=== PATIENT | female | born 1935 | race Caucasian/White ===

== ENCOUNTER 2016-08-14 18:46 | Inpatient (IN) | payer MEDICARE, OTHER ==
[~2016-08-14] VITALS: Ht 170.2 cm; Wt 54.6 kg
--- NOTE | 2016-08-14 18:53 | ED.ADGEN ---
Past History Past Medical History: Dementia, Other Past Surgical History: Other Adult General Chief Complaint Chief Complaint " .. That is my cat Donny..he has 3 kittens... he is named after my cat I had at home... the lady who was taking care of him while I was in here .. sold him... Let me tell you his three kittens look just like him.. but I can tell them apart... one hangs close, the others are running around everywhere..." ( This is conversation about stuffed black and white cat in corner of room.) HPI HPI Patient is a 81 year old female who presents with above hx and complaints. Pt. sent for medical screen to the [facility] Unit, for increased confusion, agitation, mental status change and behavior changes. Pt. has a hx. of essential hypertension, chronic A. fib, cerebral vascular disease, UTIs, Hx, hyponatremia, burst fracture lumbar, gait disorder, deconditioning, chronic low back pain, dementia, and confusion. Pt. resident of [facility] since 07-18[facility]16. Primary is Dr. Nuzhat Wang . DPOA is Emily Hernandez . Review of Systems Review of Systems Pt. has no complaints. Constitutional: Denies fever or chills [] Eyes: Denies change in visual acuity, redness, or eye pain [] HENT: Denies nasal congestion or sore throat [] Respiratory: Denies cough or shortness of breath [] Cardiovascular: No additional information not addressed in HPI [] GI: Denies abdominal pain, nausea, vomiting, bloody stools or diarrhea [] : Denies dysuria or hematuria [] Musculoskeletal: Denies back pain or joint pain [] Integument: Denies rash or skin lesions [] Neurologic: Denies headache, focal weakness or sensory changes [] Endocrine: Denies polyuria or polydipsia [] Family History Family History Non-contributory Current Medications Current Medications Current Medications Medications (Trade) Dose Ordered Sig/Florencio Start Time Stop Time Status Last Admin Dose Admin Furosemide (Lasix) 40 mg 1X ONCE 08/14/16 21:00 08/14/16 21:01 DC 08/14/16 20:53 40 MG Magnesium Sulfate (Magnesium Sulfate PREMIX 2GM) 50 ml @ 25 mls/hr 1X ONCE 08/14/16 21:00 08/14/16 22:15 DC Allergies Allergies Allergies Coded Allergies Type Severity Reaction Last Updated Verified No Known Drug Allergies 08/14/16 No Physical Exam Physical Exam Constitutional: no acute distress, non-toxic appearance. [] HENT: Normocephalic, atraumatic, bilateral external ears normal, oropharynx moist, no oral exudates, nose normal. [] No temporal art. tenderness. Eyes: PERRLA, EOMI, conjunctiva normal, no discharge. [] Neck: Normal range of motion, no tenderness, supple, no stridor. [] Cardiovascular:Heart rate regular rhythm, no murmur , PMI to Lt. Lungs & Thorax: Bilateral breath sounds equal at apexes auscultation [] Abdomen: Bowel sounds normal, soft, no tenderness, no masses, no pulsatile masses. [] Skin: Warm, dry, no erythema, no rash. Poor turgor. Back: no CVA tenderness. Lumbar tenderness. Zoster scar on Rt.? No mid line tenderness with percussion. Extremities: No tenderness, no cyanosis, no clubbing, no edema. [] Arthritis Neurologic: Alert and oriented X 3, no gross motor function deficits , no gross l sensory function deficits, . []Moves all ext on request. Psychologic: Affect normal, judgement unable to determine at this time, obvious memory problems. , mood normal. [] Current Patient Data Vital Signs Vital Signs Date Time Temp Pulse Resp B/P Pulse Ox O2 Delivery O2 Flow Rate FiO2 08/14/16 21:19 98.4 65 20 158/87 96 Room Air Lab Results Laboratory Tests Test 08/14/16 19:35 08/14/16 20:41 White Blood Count 5.1x10^3/uL (4.0-11.0) Red Blood Count 3.37x10^6/uL (3.50-5.40) L Hemoglobin 12.5g/dL (12.0-15.5) Hematocrit 36.0% (36.0-47.0) Mean Corpuscular Volume 107fL (79-100) H Mean Corpuscular Hemoglobin 37pg (25-35) H Mean Corpuscular Hemoglobin Concent 35g/dL (31-37) Red Cell Distribution Width 12.5% (11.5-14.5) Platelet Count 214x10^3/uL (140-400) Neutrophils (%) (Auto) 52% (31-73) Lymphocytes (%) (Auto) 30% (24-48) Monocytes (%) (Auto) 14% (0-9) H Eosinophils (%) (Auto) 4% (0-3) H Basophils (%) (Auto) 1% (0-3) Neutrophils # (Auto) 2.6x10^3uL (1.8-7.7) Lymphocytes # (Auto) 1.5x10^3/uL (1.0-4.8) Monocytes # (Auto) 0.7x10^3/uL (0.0-1.1) Eosinophils # (Auto) 0.2x10^3/uL (0.0-0.7) Basophils # (Auto) 0.0x10^3/uL (0.0-0.2) Erythrocyte Sedimentation Rate 50 (0-25) H Prothrombin Time 10.9SEC (9.4-11.4) Prothrombin Time INR 1.1 (0.9-1.1) PTT 27SEC (23-33) Sodium Level 141mmol/L (136-145) Potassium Level 3.7mmol/L (3.5-5.1) Chloride Level 102mmol/L (98-107) Carbon Dioxide Level 31mmol/L (21-32) Anion Gap 8 (6-14) Blood Urea Nitrogen 15mg/dL (7-20) Creatinine 0.8mg/dL (0.6-1.0) Estimated GFR (Cockcroft-Gault) 68.7 Glucose Level 109mg/dL (70-99) H Calcium Level 9.0mg/dL (8.5-10.1) Magnesium Level 1.7mg/dL (1.8-2.4) L Total Bilirubin 0.4mg/dL (0.2-1.0) Direct Bilirubin 0.2mg/dL (0.0-0.2) Aspartate Amino Transferase (AST) 11U/L (15-37) L Alanine Aminotransferase (ALT) 17U/L (14-59) Alkaline Phosphatase 95U/L (46-116) Creatine Kinase 44U/L (26-192) Creatine Kinase MB (Mass) 1.3ng/mL (0.0-3.6) Creatine Kinase MB Relative Index 3.0% (0-4) Troponin I Quantitative < 0.017ng/mL (0-0.055) C-Reactive Protein 4.7mg/L (0-3.3) H BP-Uxn-P-Type Natriuretic Peptide 1635pg/mL (0-449) H Total Protein 6.9g/dL (6.4-8.2) Albumin 3.0g/dL (3.4-5.0) L Lipase 113U/L (73-393) Urine Collection Type U cath Urine Color Straw Urine Clarity Hazy Urine pH 8.5 Urine Specific [place] 1.015 Urine Protein 30 mg/dl (NEG-TRACE) Urine Glucose (UA) Negmg/dL (NEG) Urine Ketones (Stick) Negmg/dL (NEG) Urine Blood Trace (NEG) Urine Nitrite Neg (NEG) Urine Bilirubin Neg (NEG) Urine Urobilinogen Dipstick 1mg/dL (0.2 mg/dL) Urine Leukocyte Esterase Neg (NEG) Urine RBC 1-2/HPF (0-2) Urine WBC 1-4/HPF (0-4) Urine Squamous Epithelial Cells Few/LPF Urine Bacteria Mod/HPF (0-FEW) Urine Opiates Screen Neg (NEG) Urine Methadone Screen Neg (NEG) Urine Barbiturates Neg (NEG) Urine Phencyclidine Screen Neg (NEG) Urine Amphetamine/Methamphetamine Neg (NEG) Urine Benzodiazepines Screen Neg (NEG) Urine Cocaine Screen Neg (NEG) Urine Cannabinoids Screen Neg (NEG) Urine Ethyl Alcohol Neg (NEG) EKG EKG My interpretation EKG shows a sinus bradycardia 58 bpm. There is some nonspecific T-wave changes in high lateral leads. But no findings acute STEMI with contralateral changes. [] Radiology/Procedures Radiology/Procedures My interpretation of CXR show no acute cardiopul. findings, DJD, borderline cardiomegaly. Some findings suggestive of cephalization. My interpretation of CT head shows no shift, mass, edema, bleed, or fracture. Does have findings of previous CVA and focal some encephalomalacia on right frontal lobe who is generalized atrophy .[] Course & Med Decision Making Course & Med Decision Making Pertinent Labs and Imaging studies reviewed. (See chart for details). Admit to Dr. Brennan. Consult to Dr. Mccray for medical issues and follow up pending UA, [] Final Impression Final Impression 1. Mental status change 2. Behavior disorder 3. Macrocytosis and hyper chromic indices 4. Hypo magnesium [] 5. Moderate protein malnutrition -albumin 3.0 6. Elevated BNP 7. Dementia 8. Elevated sedimentation rate 9. Subtherapeutic valproic level 10. Hx. past CVA Problems: Dragon Disclaimer Dragon Disclaimer This electronic medical record was generated, in whole or in part, using a voice recognition dictation system. LAURA HARDING MD Aug 14, 2016 18:53
--- NOTE | 2016-08-14 19:27 | RAD ---
PROCEDURE CT head without intravenous contrast. HISTORY Dementia, altered mental status. TECHNIQUE Axial images are obtained of the head from the skull base through the vertex without IV contrast Exposure: One or more of the following individualized dose reduction techniques were utilized for this examination: 1. Automated exposure control. 2. Adjustment of the mA and/or kV according to patient size. 3. Use of iterative reconstruction technique. COMPARISON None. FINDINGS There is moderate diffuse cerebral volume loss, within expectation given patient age. Focal encephalomalacia and gliosis is seen involving portions of the right frontal lobe and anterior aspect of the right insula, compatible with old infarction.No obvious intracranial mass, mass-effect, midline shift, hemorrhage or obvious acute infarction is identified.Basilar cisterns are patent. Bone windows demonstrate no acute calvarial abnormality.The visualized paranasal sinuses appear clear. IMPRESSION 1. No acute intracranial process. Please note that CT can be relatively insensitive to acute ischemic infarction for up to 24 hours after symptom onset. 2. Chronic changes. Electronically signed by: Mike Tovar MD (Aug 14, 2016 19:26:21)
[2016-08-14 20:00] LABS: BASO % 1 % (0-3); EOS # 0.2 x10^3/uL (0.0-0.7); EOS % 4 % (0-3); HEMOGLOBIN 12.5 g/dL (12.0-15.5); LYMPH # 1.5 x10^3/uL (1.0-4.8); LYMPH % 30 % (24-48); MEAN CORPUSCULAR HEMOGLOBIN 37 pg (25-35); MEAN CORPUSCULAR HGB CONC 35 g/dL (31-37); MEAN CORPUSCULAR VOLUME 107 fL (79-100); MONO # 0.7 x10^3/uL (0.0-1.1); MONO % 14 % (0-9); NEUT # 2.6 x10^3uL (1.8-7.7); NEUT % 52 % (31-73); PLATELET COUNT 214 x10^3/uL (140-400); RED BLOOD COUNT 3.37 x10^6/uL (3.50-5.40); RED CELL DISTRIBUTION WIDTH 12.5 % (11.5-14.5); WHITE BLOOD COUNT 5.1 x10^3/uL (4.0-11.0)
--- NOTE | 2016-08-14 20:14 | EKG ---
[address] [address] Test Date: 2016-08-14 Test Time: 19:22:25 Pat Name: HEATHER VILLAFANA Department: Room: Gender: F Physical Design Engineer: MONICA : [id number] Requested By: LAURA HARDING Order Number: [id number] Reading MD: Measurements Intervals [place] Rate: 58 P: 15 AK: 198 QRS: 42 QRSD: 92 T: 87 QT: 426 QTc: 422 Interpretive Statements SINUS RHYTHM T ABNORMALITY IN HIGH LATERAL LEADS ABNORMAL ECG RI6.01 Unconfirmed report No previous ECG available for comparison
[2016-08-14 20:21] LABS: C REACTIVE PROTEIN 4.7 mg/L (0-3.3); CREATININE 0.8 mg/dL (0.6-1.0); DIRECT BILIRUBIN 0.2 mg/dL (0.0-0.2); GFR 68.7; MAGNESIUM 1.7 mg/dL (1.8-2.4); POTASSIUM 3.7 mmol/L (3.5-5.1); TOTAL BILIRUBIN 0.4 mg/dL (0.2-1.0); TOTAL PROTEIN 6.9 g/dL (6.4-8.2)
[2016-08-14 21:00] VITALS: BP 154/71
[2016-08-14 21:00] LABS: BARBITURATES NEG (NEG); BENZODIAZEPINES NEG (NEG); CANNABINOIDS NEG (NEG); COCAINE NEG (NEG); METHADONE NEG (NEG); OPIATES NEG (NEG); PHENCYCLIDINE NEG (NEG)
[2016-08-14] MEDS ORDERED: FUROSEMIDE 40 MG TABLET PO ONE (21:00)
[2016-08-14] MEDS ORDERED: MAGNESIUM SULFATE 2GM 50 ML IV ONE (21:00)
[2016-08-14 21:01] LABS: AMPHETAMINE/METHAMPHETAMINE NEG (NEG)
[2016-08-14] MEDS ORDERED: FERR-26 PO (21:22)
[2016-08-14] MEDS ORDERED: ESCI5TAB8 PO (21:22)
[2016-08-14] MEDS ORDERED: ESCI10TA PO (21:22)
[2016-08-14] MEDS ORDERED: PANT40TA5 PO (21:22)
[2016-08-14] MEDS ORDERED: ASPI81TA9 PO (21:22)
[2016-08-14] MEDS ORDERED: OXYC5TAB PO (21:22)
[2016-08-14] MEDS ORDERED: THIA100T8 PO (21:22)
[2016-08-14] MEDS ORDERED: POLY119P4 PO (21:22)
[2016-08-14] MEDS ORDERED: CARV12.5 PO (21:22)
[2016-08-14] MEDS ORDERED: VALP250S PO (21:22)
[2016-08-14] MEDS ORDERED: ACET325T21 PO (21:22)
[2016-08-14] MEDS ORDERED: AMLO5TAB4 PO (21:22)
[2016-08-14] MEDS ORDERED: MIRT7.5T8 PO (21:22)
[2016-08-14] MEDS ORDERED: CLON0.1T PO (21:22)
[2016-08-14] MEDS ORDERED: GABA600T PO (21:22)
[2016-08-14] MEDS ORDERED: DARI7.5T3 PO (21:22)
[2016-08-14] MEDS ORDERED: BISA10SU2 RC (21:22)
[2016-08-14] MEDS ORDERED: APIX2.5T PO (21:22)
[2016-08-14] MEDS ORDERED: SENN8.6T3 PO (21:22)
[2016-08-14 21:31] LABS: BILIRUBIN,URINE NEG (NEG); CLARITY,URINE HAZY; COLOR,URINE STRAW; GLUCOSE,URINE NEG (NEG); NITRITE,URINE NEG (NEG); UROBILINOGEN,URINE 1 mg/dL (0.2 mg/dL)
[2016-08-14 21:32] LABS: BACTERIA,URINE MOD /HPF (0-FEW); SQUAMOUS EPITHELIAL CELL,UR FEW /LPF
[2016-08-14 21:52] LABS: SEDIMENTATION RATE 50 (0-25)
[2016-08-14] MEDS ORDERED: ACETAMINOPHEN 325 MG TABLET PO PRN (22:00)
[2016-08-14] MEDS ORDERED: METHYL SALICYLATE/MENTHOL TOPICAL OINTMENT 29GM TUBE. TP PRN (22:00)
[2016-08-14] MEDS ORDERED: MAG HYDROX/AL HYDROX/SIMETH 30 ML ORAL.SUSP PO PRN (22:00)
[2016-08-14] MEDS ORDERED: MAGNESIUM HYDROXIDE 2,400 MG/30 ML ORAL.SUSP. PO PRN (22:00)
[2016-08-14] MEDS ORDERED: BISACODYL 10 MG SUPP.RECT RC PRN (22:15)
[2016-08-14] MEDS ORDERED: CLONIDINE HCL 0.1 MG TABLET PO PRN (22:15)
[2016-08-14 22:57] LABS: VAL ACID 6 mcg/mL (50-100)
[2016-08-14] MEDS: SENNOSIDES 8.6 MG TABLET PO SCH (23:30)
[2016-08-14] MEDS: MIRTAZAPINE 7.5 MG TABLET. PO SCH (23:30)
[2016-08-14] MEDS: GABAPENTIN 300 MG CAPSULE. PO SCH (23:30)
[2016-08-14] MEDS: MAGNESIUM OXIDE 400 MG TABLET PO SCH (23:30)
[2016-08-14] MEDS: ESCITALOPRAM 5 MG TABLET PO SCH (23:30)
[2016-08-14] MEDS: VALPROATE ACID 250 MG/5 ML ORAL SOLUTION PO SCH (23:30)
--- NOTE | 2016-08-15 02:02 | ACF ---
Admission Criteria Forms [facility] Clinical Indications for Admission to Inpatient Care (Place 'X' for any and all applicable criteria): Hospital admission is needed for appropriate care of the patient because of ANY ONE of the following[A] (3)(4)(5): [ ]I. Inpatient behavioral care is needed as indicated by ALL of the following: [ ]a) Treatment is needed because of patient risk due to ANY ONE of the following: [ ]i) Imminent danger to self due to ANY ONE of the following ( 7)(8): [ ]1) Imminent risk for recurrence of a suicide attempt or act of serious self-harm as indicated by ALL of the following: [ ]A. Very recent suicide attempt or deliberate act of serious self-harm [ ]B. Absence of sufficient relief of the action' s precipitants [ ]2) Current plan for suicide or serious self-harm [ ]3) Persistent thoughts of suicide or serious self- harm that cannot be adequately monitored at a lower level of care because of ANY ONE of the following: [ ]A. Insufficient behavioral care provider availability [ ]B. Inadequate patient support system [ ]C. Patient characteristics such as high impulsivity or unreliability [ ]D. Ruminative flooding; uncontrollable and overwhelming profusion of negative thoughts [ ]E. Frantic hopelessness; fatalistic conviction that life will not improve along with oppressive sense of entrapment and doom [ ]F. Active substance use disorder is present [ ]G. Ready access to lethal means is present [ ]ii) Imminent danger to others due to ANY ONE of the following( 10)(11): [ ]1) Imminent risk for recurrence of an attempt to seriously harm another as indicated by ALL of the following: [ ]A. Very recent attempt to seriously harm another [ ]B. Absence of sufficient relief of the action' s precipitants [ ]2) Current plan for homicide or seriously harming another [ ]3) Command auditory hallucination for serious self harm to self or others [ ]4) Persistent thoughts of homicide or seriously harming another that cannot be adequately monitored at a lower level of care because of ANY ONE of the following: [ ]A. Insufficient behavioral care provider availability [ ]B. Inadequate patient support system [ ]C. Patient characteristics such as high impulsivity or unreliability [ ]D. Active substance use disorder is present [ ]E. Ready access to lethal means is present [ ]iii) Behavioral health disorder is present with ALL of the following: (12)(16)(17)(18): [ ]1) Severe psychiatric or behavioral symptoms are present , including ANY ONE of the following: [ ]A. Hallucinations that are very bothersome to patient or are associated with severe pressure to respond to voices(17)(18) [ ]B. Delusions that are very bothersome to patient or are associated with severe pressure to act on beliefs(17)(18) [ ]C. Disorganized speech that is almost impossible to follow(17)(18) [ ]D. Motor behavior that is almost constantly abnormal or bizarre or catatonic(17)(18) [ ]E. Severe negative symptoms (eg, severe decrease in facial expression or self-initiated behavior)(17)(18) [ ]F. Severe nupur (eg, daily periods of extensive mood elevation or irritability)(19)(20)(21)(22) [ ]G. Severe depression (eg, daily symptoms of deep hopelessness)[C] [ ]H. Severe anxiety[D] [ ]I. Severe comorbid substance use disorder with inability to control use, intense withdrawal symptoms, or extreme negative impact on primary psychiatric disorder(2)(7)(25) [ ]J. Severe impairment in cognition, memory, judgment, or impulse control(26)(27) [ ]K. Severe impairment in behavior, including physical or verbal aggression, disruptive behaviors, or internal or external anger manifestations (eg, rumination or outbursts)(28) [ ]L. Other psychiatric symptoms which are acute or represent worsening over baseline (eg, hyperactivity, agitation, obsessions, or compulsions)(29)(30)(31) [ ]2) Severe dysfunction in daily living is present as indicated by ANY ONE of the following: [ ]A. Extreme deterioration in social interactions ( eg, threatening behaviors with little or no provocation) [ ]B. Complete withdrawal from all social interactions [ ]C. Complete neglect of self-care with associated impairment in physical status [ ]D. Extreme disruption in vegetative function (eg , life-sustaining functions such as eating) [ ]E. Complete inability to maintain any appropriate aspect of personal responsibility in any adult roles (eg, occupational, parental) [ ]b) Treatment situation and needs are appropriate for level as indicated by ANY ONE of the following(13)(16): [ ]i) Patient unwilling to participate voluntarily and requires treatment (eg, legal commitment) in an involuntary unit [ ]ii) Voluntary treatment at lower level not feasible (e.g., very short-term crisis intervention or residential care unavailable or unacceptable for patient condition) [ ]iii) Need for physical restraint, seclusion, or other involuntary control (e.g., actively violent patient and adequate clinical rapport cannot be established to control violence) (25) [ ]iv) [id number] medical or nursing care to address symptoms and initiate intervention is required; specific need has been identified [ ]II. Delirium as described by ANY ONE of the following (26)(27)(28): [ ]a) Delirium due to alcohol or sedative [B] withdrawal (16)(29)(30)( 31) [ ]b) Delirium of uncertain etiology that has not responded to appropriate treatment in emergency department or urgent care setting (32)(33) [ ]c) Delirium that prevents performance of a life-sustaining function (eg, feeding or hydrating oneself) (9) [ ]III. Administration of a somatic treatment that requires [id number] medical or nursing care because of a potential adverse physical effect or medical comorbidity(7) [X]IV. Behavioral Health condition, symptom, or finding for which emergency and observation care have failed or are not considered appropriate The original [facility] [employer] content created by [employer] has been revised. The portions of the content which have been revised are identified through the use of italic text or in bold, and [facility] has neither reviewed nor approved the modified material. All other unmodified content is copyright [facility] [employer]. Please see references footnoted in the original [facility] [employer] edition 2015 Admission Criteria Met?: Yes LUPE SOLITARIO Aug 15, 2016 02:02
[2016-08-15 05:48] VITALS: BP 159/70
[2016-08-15 06:53] LABS: BASO % 1 % (0-3); EOS # 0.2 x10^3/uL (0.0-0.7); EOS % 4 % (0-3); HEMATOCRIT 35.5 % (36.0-47.0); HEMOGLOBIN 12.2 g/dL (12.0-15.5); LYMPH # 1.5 x10^3/uL (1.0-4.8); LYMPH % 31 % (24-48); MEAN CORPUSCULAR HEMOGLOBIN 37 pg (25-35); MEAN CORPUSCULAR HGB CONC 34 g/dL (31-37); MEAN CORPUSCULAR VOLUME 108 fL (79-100); MONO # 0.6 x10^3/uL (0.0-1.1); MONO % 12 % (0-9); NEUT # 2.4 x10^3uL (1.8-7.7); NEUT % 52 % (31-73); PLATELET COUNT 236 x10^3/uL (140-400); RED BLOOD COUNT 3.29 x10^6/uL (3.50-5.40); RED CELL DISTRIBUTION WIDTH 12.7 % (11.5-14.5); WHITE BLOOD COUNT 4.8 x10^3/uL (4.0-11.0)
[2016-08-15 07:24] LABS: ALBUMIN/GLOBULIN RATIO 0.8 (1.0-1.7); CALCIUM 8.9 mg/dL (8.5-10.1); CREATININE 0.9 mg/dL (0.6-1.0); GFR 59.9; POTASSIUM 3.4 mmol/L (3.5-5.1); TOTAL BILIRUBIN 0.4 mg/dL (0.2-1.0); TOTAL PROTEIN 6.8 g/dL (6.4-8.2)
[2016-08-15 07:30] VITALS: BP 121/80
[2016-08-15] MEDS: MAGNESIUM OXIDE 400 MG TABLET PO SCH ×4 (08:11→19:23)
[2016-08-15] MEDS: GABAPENTIN 300 MG CAPSULE. PO SCH ×4 (08:11→19:23)
[2016-08-15] MEDS: ASPIRIN ENTERIC COATED 81 MG TABLET.DR. PO SCH (08:11)
[2016-08-15] MEDS: APIXABAN 2.5 MG TABLET PO SCH (08:12)
[2016-08-15] MEDS: THIAMINE 100 MG TABLET. PO SCH ×3 (08:12→16:01)
[2016-08-15] MEDS: FERROUS SULFATE 325 MG TABLET PO SCH (08:12)
[2016-08-15] MEDS: PANTOPRAZOLE 40 MG TABLET. PO SCH (08:12)
[2016-08-15] MEDS: CARVEDILOL 12.5 MG TABLET PO SCH ×2 (08:12→16:01)
[2016-08-15] MEDS: AMLODIPINE BESYLATE 5 MG TABLET PO SCH (08:12)
[2016-08-15] MEDS: OXYBUTYNIN CHLORIDE 5 MG TABLET PO SCH ×2 (08:12→19:22)
[2016-08-15] MEDS: SENNOSIDES 8.6 MG TABLET PO SCH ×2 (08:12→19:23)
[2016-08-15] MEDS: VALPROATE ACID 250 MG/5 ML ORAL SOLUTION PO SCH ×2 (08:13→19:23)
[2016-08-15] MEDS: POLYETHYLENE GLYCOL 3350 17 GM PACKET. PO SCH (08:13)
--- NOTE | 2016-08-15 08:19 | RAD ---
Indication: Dyspnea today. Technique: AP portable chest radiograph was obtained. No comparison is available. Findings: The lungs are clear. There is presumed biapical scarring. There is granulomatous disease. The heart is not enlarged. There is atheromatous disease within a tortuous thoracic aorta. Costophrenic angles are clear. Impression: No acute thoracic findings.
[2016-08-15] MEDS ORDERED: DARIFENACIN HYDROBROMIDE 7.5 MG PO SCH (09:00)
[2016-08-15 14:18] LABS: IRON,SERUM 94 ug/dL (50-170)
[2016-08-15 15:49] VITALS: BP 141/68
[2016-08-15 18:09] LABS: THYROXINE 7.3 ug/dL (4.5-12.0)
--- NOTE | 2016-08-15 19:14 | HP ---
ADMIT DATE: 08/15/2016 IDENTIFYING DATA: The patient is an 81-year-old female referred to us from [facility] by Dr. Wang, her primary care physician, on account of being combative, yelling with ____, resistive to medications, being paranoid, verbally abusive, unmanageable behaviors deemed to be potentially dangerous and having failed outpatient psychiatric interventions, she is referred for inpatient psychiatric stabilization. CHIEF COMPLAINT: "I'm okay." HISTORY OF PRESENT ILLNESS: The patient has a history of short term memory deficits, confusion. The patient has been residing at [facility] for some time, but over the past few days she has been increasingly agitated, aggressive, disruptive, paranoid and confused. She has also had some sleep and appetite changes. No clear suicidal or homicidal ideation. No clear history of bipolar disorder. PAST PSYCHIATRIC HISTORY: As above. MEDICAL HISTORY: Status post lumbar fracture. The patient was seen at the [facility] Emergency Room prior to this admission by Dr. Ann and found to be medically stable to be on our unit. In the ER, the patient was talking to Dr. Ann about kittens she seemed to have in her hand. History of recurrent urinary tract infection, cerebrovascular disease, chronic atrial fibrillation, hypertension, hyponatremia, gait disorder, deconditioning, chronic low back pain. The patient has a DPOA. CURRENT PSYCHOTROPICS: Lexapro 5 mg a day plus 10 mg a day, Depakene 100 mg twice a day, Remeron 7.5 mg at bedtime. ALLERGIES: Negative. CODE STATUS: DNR. FAMILY HISTORY: Noncontributory. SOCIAL HISTORY: No history of alcohol, drug abuse, physical, sexual or elder abuse. She is not known to be a perpetrator. 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 MENTAL STATUS EXAM: The patient was seen individually evening of 08/15/2016. She is oriented to herself and situation. Speech is coherent, abstraction fair, computation impaired, language function intact, attention span short. Mood and affect, somewhat anxious, paranoid, labile at times. LABORATORY DATA: Reviewed. VITAL SIGNS: Temperature 98, pulse 86, blood pressure 141/68. REVIEW OF SYSTEMS: No CV, , pulmonary, eye, ENT system symptoms on review. IMPRESSION: Major neurocognitive disorder, early Alzheimer's, vascular with depression, delusion, behavioral disturbance; anxiety disorder, unspecified; impulse control disorder, unspecified. Rest diagnoses as above. PLAN: Continue current psychotropics, observe the patient's baseline, make further adjustments as clinically indicated. MAN Abelardo MENJIVAR MD DR: GUNJAN/susannah JOB#: [id number] / [id number]
[2016-08-15] MEDS: MIRTAZAPINE 7.5 MG TABLET. PO SCH (19:22)
[2016-08-15] MEDS: ESCITALOPRAM 5 MG TABLET PO SCH (19:22)
[2016-08-15] MEDS: POTASSIUM CHLORIDE 20 MEQ TABLET.ER. PO SCH (20:14)
--- NOTE | 2016-08-15 21:08 | PDOC ---
Exam Bj Demential Exam: Bj Note: Please also refer to the separate dictated note~for this date of service dictated separately.~Patient seen individually. Discussed the patient with Nursing staff reviewed the chart.~Reviewed interim history and current functioning. Reviewed vital signs,~Labs/ Radiology~and current medications noted below. Continue current treatment with the changes noted in the dictated addendum note Assessment: Vital Signs: Vital Signs Date Time Temp Pulse Resp B/P Pulse Ox O2 Delivery O2 Flow Rate FiO2 08/15/16 16:01 86 141/68 08/15/16 15:49 98.0 16 97 08/14/16 21:19 Room Air I&O Intake and Output 08/15/16 07:00 Intake Total 80 ml Balance 80 ml Intake Oral 80 ml # Voids 2 Labs: Laboratory Tests Test 08/14/16 22:20 08/15/16 06:29 08/15/16 06:52 Iron Level 94ug/dL (50-170) Total Iron Binding Capacity 199ug/dL (250-450) L Iron Saturation 47% (15-34) H Triglycerides Level 45mg/dL (0-150) Cholesterol Level 187mg/dL (0-200) LDL Cholesterol, Calculated 137mg/dL (0-100) H VLDL Cholesterol, Calculated 9mg/dL (0-40) HDL Cholesterol 41mg/dL (40-60) Cholesterol/HDL Ratio 4.0 Vitamin B12 Level 387pg/mL (247-911) 25-Hydroxy Vitamin D Total Pending Thyroxine (T4) 7.3ug/dL (4.5-12.0) Total Triiodothyronine (TT3) 78ng/dL (71-180) Valproic Acid Level 6mcg/mL (50-100) L Valproic Acid Last Dose Date 08/14/2016 Valproic Acid Last Dose Time 0800 White Blood Count 4.8x10^3/uL (4.0-11.0) Red Blood Count 3.29x10^6/uL (3.50-5.40) L Hemoglobin 12.2g/dL (12.0-15.5) Hematocrit 35.5% (36.0-47.0) L Mean Corpuscular Volume 108fL (79-100) H Mean Corpuscular Hemoglobin 37pg (25-35) H Mean Corpuscular Hemoglobin Concent 34g/dL (31-37) Red Cell Distribution Width 12.7% (11.5-14.5) Platelet Count 236x10^3/uL (140-400) Neutrophils (%) (Auto) 52% (31-73) Lymphocytes (%) (Auto) 31% (24-48) Monocytes (%) (Auto) 12% (0-9) H Eosinophils (%) (Auto) 4% (0-3) H Basophils (%) (Auto) 1% (0-3) Neutrophils # (Auto) 2.4x10^3uL (1.8-7.7) Lymphocytes # (Auto) 1.5x10^3/uL (1.0-4.8) Monocytes # (Auto) 0.6x10^3/uL (0.0-1.1) Eosinophils # (Auto) 0.2x10^3/uL (0.0-0.7) Basophils # (Auto) 0.0x10^3/uL (0.0-0.2) Sodium Level 141mmol/L (136-145) Potassium Level 3.4mmol/L (3.5-5.1) L Chloride Level 103mmol/L (98-107) Carbon Dioxide Level 33mmol/L (21-32) H Anion Gap 5 (6-14) L Blood Urea Nitrogen 17mg/dL (7-20) Creatinine 0.9mg/dL (0.6-1.0) Estimated GFR (Cockcroft-Gault) 59.9 BUN/Creatinine Ratio 19 (6-20) Glucose Level 96mg/dL (70-99) Calcium Level 8.9mg/dL (8.5-10.1) Total Bilirubin 0.4mg/dL (0.2-1.0) Aspartate Amino Transferase (AST) 12U/L (15-37) L Alanine Aminotransferase (ALT) 14U/L (14-59) Alkaline Phosphatase 91U/L (46-116) Total Protein 6.8g/dL (6.4-8.2) Albumin 3.0g/dL (3.4-5.0) L Albumin/Globulin Ratio 0.8 (1.0-1.7) L Glucose (Fingerstick) 114mg/dL (70-99) H Current Medications: Meds: Current Medications Magnesium Sulfate (Magnesium Sulfate PREMIX 2GM) 50 ml @ 25 mls/hr 1X ONCE IV ; Start 08/14/16 at 21:00; Stop 08/14/16 at 22:15; Status DC Furosemide (Lasix) 40 mg 1X ONCE PO Last administered on 08/14/16 20:53; Start 08/14/16 at 21:00; Stop 08/14/16 at 21:01; Status DC Acetaminophen (Tylenol) 650 mg PRN Q6HRS PRN PO PAIN / TEMP; Start 08/14/16 at 22:00 Multi-Ingredient Ointment (Analgesic [place]) 1 sidra PRN QID PRN TP MUSCLE PAIN; Start 08/14/16 at 22:00 Al Hydroxide/Mg Hydroxide (Mylanta Plus Xs) 15 ml PRN AFTMEALHC PRN PO DYSPEPSIA; Start 08/14/16 at 22:00 Magnesium Hydroxide (Milk Of Magnesia) 2,400 mg PRN QHS PRN PO CONSTIPATION; Start 08/14/16 at 22:00 Escitalopram Oxalate (Lexapro) 10 mg QHS PO ; Start 08/21/16 at 21:00 Escitalopram Oxalate (Lexapro) 5 mg QHS PO Last administered on 08/15/16 19:22 ; Start 08/14/16 at 22:30; Stop 08/20/16 at 22:00 Mirtazapine (Remeron) 7.5 mg QHS PO Last administered on 08/15/16 19:22; Start 08/14/16 at 22:30 Valproic Acid (Depakene) 100 mg BID PO Last administered on 08/15/16 19:23; Start 08/14/16 at 22:30 Magnesium Oxide (Magnesium Oxide) 400 mg TID PO Last administered on 08/15/16 19:23; Start 08/14/16 at 22:30 Amlodipine Besylate (Norvasc) 5 mg DAILY PO Last administered on 08/15/16 08: 12; Start 08/15/16 at 09:00 Apixaban (Eliquis) 2.5 mg DAILY PO Last administered on 08/15/16 08:12; Start 08/15/16 at 09:00 Aspirin (Aspirin Enteric Coated) 81 mg DAILY PO Last administered on 08/15/16 08:11; Start 08/15/16 at 09:00 Bisacodyl (Dulcolax Supp) 10 mg PRN Q12HR PRN RC CONSTIPATION; Start 08/14/16 at 22:15 Carvedilol (Coreg) 12.5 mg BIDWMEALS PO Last administered on 08/15/16 16:01; Start 08/15/16 at 08:00 Clonidine HCl (Catapres) 0.1 mg PRN DAILY PRN PO HTN; Start 08/14/16 at 22:15 Ferrous Sulfate (Feosol) 325 mg DAILY PO Last administered on 08/15/16 08:12; Start 08/15/16 at 09:00 Oxycodone HCl (Roxicodone) 5 mg PRN Q4HRS PRN PO PAIN; Start 08/14/16 at 22:15 Pantoprazole Sodium (Protonix) 40 mg DAILY PO Last administered on 08/15/16 08 :12; Start 08/15/16 at 09:00 Polyethylene Glycol (miraLAX) 17 gm DAILY PO Last administered on 08/15/16 08: 13; Start 08/15/16 at 09:00 Sennosides (Senna) 8.6 mg BID PO Last administered on 08/15/16 19:23; Start at 22:30 Thiamine HCl (Vitamin B-1) 100 mg TIDAFTMEAL PO Last administered on 08/15/16 16:01; Start 08/15/16 at 09:00 Non-Formulary Medication 7.5 mg DAILY PO Overactive Bladder; Start 08/15/16 at 09:00; Stop 08/15/16 at 09:00; Status DC Gabapentin (Neurontin) 600 mg TID PO Last administered on 08/15/16 19:23; Start 08/14/16 at 22:30 Oxybutynin Chloride (Ditropan) 5 mg BID PO Last administered on 08/15/16 19:22 ; Start 08/15/16 at 09:00 Potassium Chloride (Klor-Con) 20 meq BID PO Last administered on 08/15/16 20: 14; Start 08/15/16 at 21:00 Active Scripts Active Reported Oxycodone Hcl 5 Mg Tablet 5 Mg PO PRN Q4HRS PRN Clonidine Hcl 0.1 Mg Tablet 0.1 Mg PO PRN DAILY PRN Bisacodyl 10 Mg Supp.rect 10 Mg RC PRN Q12HR PRN Acetaminophen 325 Mg Tablet 650 Mg PO PRN Q4HRS PRN Thiamine Hcl 100 Mg Tablet 100 Mg PO TIDAFTMEAL Neurontin (Gabapentin) 600 Mg Tablet 600 Mg PO TID Senna (Sennosides) 8.6 Mg Tablet 8.6 Mg PO BID Eliquis (Apixaban) 2.5 Mg Tablet 2.5 Mg PO DAILY Depakene (Valproate Sodium) 250 Mg/5 Ml Solution 100 Mg PO BID Coreg (Carvedilol) 12.5 Mg Tablet 12.5 Mg PO BIDWMEALS Mirtazapine 7.5 Mg Tablet 7.5 Mg PO QHS Pantoprazole Sodium 40 Mg Tablet. 40 Mg PO DAILY Norvasc (Amlodipine Besylate) 5 Mg Tablet 5 Mg PO DAILY Miralax (Polyethylene Glycol 3350) 119 Gm Powder 17 Gm PO DAILY Lexapro (Escitalopram Oxalate) 5 Mg Tablet 5 Mg PO QHS 7 Days Escitalopram Oxalate 10 Mg Tablet 10 Mg PO QHS Start 08/21/16 Ferrous Sulfate 325 Mg Tablet 325 Mg PO DAILY Enablex (Darifenacin Hydrobromide) 7.5 Mg Tab.er.24h 7.5 Mg PO DAILY Aspirin Ec (Aspirin) 81 Mg Tablet. 81 Mg PO DAILY Diagnosis: Problems: (1) Dementia SYDNEE MENJIVAR MD Aug 15, 2016 21:08
--- NOTE | 2016-08-15 22:38 | CONS ---
DATE OF CONSULTATION: 08/15/2016 REASON FOR CONSULTATION: Medical management. HISTORY OF PRESENT ILLNESS: The patient an 81-year-old female patient, a resident at [facility], who was admitted due to suicidal ideation, homicidal ideation, yelling, sarcastic, delusional. She has been very agitated, verbally aggressive with staff, refusing any activity, threatening self-harm and saying that she has no reason to live all this in the background of mild cognitive impairment and impulse control disorder. She is here for inpatient psychiatric stabilization. PAST MEDICAL HISTORY: Significant for hypertension, chronic atrial fibrillation, late effects of cerebrovascular accident, hyponatremia, burst fracture of the lumbar vertebrae. She has difficulty walking, muscle weakness, frailty and low back pain. PAST SURGICAL HISTORY: She stated that she has hysterectomy and appendectomy, I am not sure how accurate is that. ALLERGIES: She has no known drug allergies. MEDICATIONS: She is currently on the following medications: She is on acetaminophen 650 mg every 4 hours as needed for pain or fever, amlodipine besylate 5 mg daily, apixaban 2.5 mg daily, aspirin 81 mg once a day, bisacodyl 10 mg twice a day as needed, carvedilol 12.5 mg twice a day, clonidine 0.4 mg once a day for high blood pressure. She is on Enablex 7.5 mg daily, escitalopram oxalate 10 mg at bedtime. She is on escitalopram oxalate 5 mg at bedtime, ferrous sulfate 325 mg daily, gabapentin 600 mg 3 times a day, mirtazapine 7.5 mg at bedtime, oxycodone 5 mg every 4 hours as needed, Protonix 40 mg once a day, polyethylene glycol 17 grams daily, senna 1 tablet twice a day, thiamine 100 mg once a day and valproic acid for Depakene 100 mg p.o. b.i.d. FAMILY HISTORY: Noncontributory. SOCIAL HISTORY: She is a resident at the [facility]. She apparently is . She used to be a smoker, does not drink alcohol or use any recreational drugs. She has a son and daughter. REVIEW OF SYSTEMS: As per history of present illness. PHYSICAL EXAMINATION GENERAL: When I examined her, she was sitting comfortably in her wheelchair, in no apparent respiratory distress, pale, cachectic, but no jaundice, cyanosis or thyromegaly. No jugular venous distention. No limb edema. VITAL SIGNS: Her heart rate was 86, blood pressure 141/68, temperature was 98, respiratory rate was 16 and oxygen saturation was 97%. HEAD, EYES, EARS, NOSE AND THROAT: Showed normocephalic, atraumatic. NECK: Supple. HEART: Showed normal first and second heart sounds with no gallop, rub or murmur. CHEST: Clear to auscultation. No crepitation or rhonchi. ABDOMEN: Distended, soft, nontender. NEUROLOGIC: She is awake, alert, responding appropriately. Cranial nerves intact. EXTREMITIES: She moves all extremities without difficulty. She apparently is a 2-person assist because of burst fracture of her L1, she is mostly bedbound and chair bound. LABORATORY DATA: This morning showed a white cell count 4800, hemoglobin 12.2, hematocrit 36, MCV 108 and platelet count of 236,000 with normal manual differential. Her chemistry showed a serum sodium 141, potassium 3.4, chloride 103, bicarbonate 33, anion gap of 5, BUN 17, creatinine 0.9, estimated GFR was 60 mL per minute. Her glucose was 96, calcium was 8.9. Total bilirubin, AST, ALT, alkaline phosphatase were normal. Serum iron was 94, total iron binding capacity was 199 and percent saturation was 47%. Her total protein was 6.8. Albumin 3. Triglycerides were 45. Total cholesterol 187, LDL cholesterol was 137, VLDL was 9, and HDL cholesterol was 41. The ratio was 4. Her vitamin B12 was 387 pg/mL. TSH was normal at 1.436. Her serum magnesium was 1.7 and her BNP was slightly high at 1635. Her prothrombin time was 10.9. INR 1.1, aPTT was 27. Urinalysis was essentially unremarkable. Urine was hazy, straw-colored with a pH of 8.5. Specific gravity of 1.015. There was trace of protein, negative for glucose, ketones. There was trace of blood. Negative for nitrite and leukocyte esterase, 1-2 rbc's, 1-4 wbc's, moderate amount of bacteria. Toxicology screen was negative. She did have a CT scan of the head without contrast showed no acute intracranial process. There is moderate diffuse cerebral volume loss within the expected patient's age, focal encephalomalacia and gliosis seen involving the portion of the right frontal lobe anterior aspect of the right insula compatible with an old infarction, no obvious intracranial mass, mass effect, midline shift, hemorrhage or obvious acute infarction is identified. Basilar cisterns are patent. Bone windows demonstrate no acute calvarial abnormalities visualized. Paranasal sinuses appear clear. Her chest x-ray showed that the lungs are clear. There is ____ biapical scarring. There is a granulomatous disease. Heart is not enlarged. There is atheromatous disease within the tortuous thoracic aorta. Costophrenic angles are clear. IMPRESSION: In summary, this is an 81-year-old female patient who was admitted to [facility] on the account of suicidal and homicidal ideation. She was basically yelling, sarcastic, delusional, resistive to medication, disorganized, refusing care. She has multiple medical problems including hypertension, hyponatremia, chronic atrial fibrillation, right-sided CVA with left side hemiplegia, osteoporosis, osteoarthritis. She has also burst fracture of the L1. She is basically a 2-person assist. She is mostly bedbound and chair bound. Her vital signs are stable. Her lab work seems to be stable. Her white cell count and platelets are normal as well as her hemoglobin and hematocrit. Her MCV is slightly high, although vitamin B12 was normal. Her chemistry revealed mild hypokalemia and hypomagnesemia, it was corrected. All in all, this patient seemed to be stable medically. Thank you, Dr. Brennan for allowing me to participate in the care of this patient. KASSI FRANKLIN MD DR: TERRENCE/susannah JOB#: [id number] / [id number]
[2016-08-16 03:11] LABS: HEMOGLOBIN A1C 5.2 % (4.8-5.6)
[2016-08-16 05:09] LABS: RPR REFLEX Negative (Non Reactive)
[2016-08-16 05:53] VITALS: BP 135/72
[2016-08-16] MEDS: APIXABAN 2.5 MG TABLET PO SCH (09:22)
[2016-08-16] MEDS: GABAPENTIN 300 MG CAPSULE. PO SCH ×3 (09:22→20:44)
[2016-08-16] MEDS: POLYETHYLENE GLYCOL 3350 17 GM PACKET. PO SCH (09:22)
[2016-08-16] MEDS: VALPROATE ACID 250 MG/5 ML ORAL SOLUTION PO SCH ×2 (09:22→20:44)
[2016-08-16] MEDS: OXYBUTYNIN CHLORIDE 5 MG TABLET PO SCH ×2 (09:23→20:44)
[2016-08-16] MEDS: SENNOSIDES 8.6 MG TABLET PO SCH ×2 (09:23→20:45)
[2016-08-16] MEDS: MAGNESIUM OXIDE 400 MG TABLET PO SCH ×3 (09:23→20:45)
[2016-08-16] MEDS: CARVEDILOL 12.5 MG TABLET PO SCH ×2 (09:23→16:52)
[2016-08-16] MEDS: POTASSIUM CHLORIDE 20 MEQ TABLET.ER. PO SCH ×2 (09:23→20:45)
[2016-08-16] MEDS: ASPIRIN ENTERIC COATED 81 MG TABLET.DR. PO SCH (09:23)
[2016-08-16] MEDS: AMLODIPINE BESYLATE 5 MG TABLET PO SCH (09:23)
[2016-08-16] MEDS: THIAMINE 100 MG TABLET. PO SCH ×3 (09:23→16:52)
[2016-08-16] MEDS: PANTOPRAZOLE 40 MG TABLET. PO SCH (09:23)
[2016-08-16] MEDS: FERROUS SULFATE 325 MG TABLET PO SCH (09:24)
[2016-08-16 15:42] VITALS: BP 129/72
[2016-08-16] MEDS: ESCITALOPRAM 5 MG TABLET PO SCH (20:44)
[2016-08-16] MEDS: MIRTAZAPINE 7.5 MG TABLET. PO SCH (20:44)
--- NOTE | 2016-08-16 22:02 | PDOC ---
Exam Bj Demential Exam: Bj Note: Please also refer to the separate dictated note~for this date of service dictated separately.~Patient seen individually. Discussed the patient with Nursing staff reviewed the chart.~Reviewed interim history and current functioning. Reviewed vital signs,~Labs/ Radiology~and current medications noted below. Continue current treatment with the changes noted in the dictated addendum note Assessment: Vital Signs: Vital Signs Date Time Temp Pulse Resp B/P Pulse Ox O2 Delivery O2 Flow Rate FiO2 08/16/16 16:52 60 129/72 08/16/16 15:42 97.5 18 98 Room Air I&O Intake and Output 08/16/16 07:00 Intake Total 360 ml Balance 360 ml Intake Oral 360 ml # Bowel Movements 1 Current Medications: Meds: Current Medications Magnesium Sulfate (Magnesium Sulfate PREMIX 2GM) 50 ml @ 25 mls/hr 1X ONCE IV ; Start 08/14/16 at 21:00; Stop 08/14/16 at 22:15; Status DC Furosemide (Lasix) 40 mg 1X ONCE PO Last administered on 08/14/16 20:53; Start 08/14/16 at 21:00; Stop 08/14/16 at 21:01; Status DC Acetaminophen (Tylenol) 650 mg PRN Q6HRS PRN PO PAIN / TEMP; Start 08/14/16 at 22:00 Multi-Ingredient Ointment (Analgesic [place]) 1 sidra PRN QID PRN TP MUSCLE PAIN; Start 08/14/16 at 22:00 Al Hydroxide/Mg Hydroxide (Mylanta Plus Xs) 15 ml PRN AFTMEALHC PRN PO DYSPEPSIA; Start 08/14/16 at 22:00 Magnesium Hydroxide (Milk Of Magnesia) 2,400 mg PRN QHS PRN PO CONSTIPATION; Start 08/14/16 at 22:00 Escitalopram Oxalate (Lexapro) 10 mg QHS PO ; Start 08/21/16 at 21:00 Escitalopram Oxalate (Lexapro) 5 mg QHS PO Last administered on 08/16/16 20:44 ; Start 08/14/16 at 22:30; Stop 08/20/16 at 22:00 Mirtazapine (Remeron) 7.5 mg QHS PO Last administered on 08/16/16 20:44; Start 08/14/16 at 22:30 Valproic Acid (Depakene) 100 mg BID PO Last administered on 08/16/16 20:44; Start 08/14/16 at 22:30 Magnesium Oxide (Magnesium Oxide) 400 mg TID PO Last administered on 08/16/16 20:45; Start 08/14/16 at 22:30 Amlodipine Besylate (Norvasc) 5 mg DAILY PO Last administered on 08/16/16 09: 23; Start 08/15/16 at 09:00 Apixaban (Eliquis) 2.5 mg DAILY PO Last administered on 08/16/16 09:22; Start 08/15/16 at 09:00 Aspirin (Aspirin Enteric Coated) 81 mg DAILY PO Last administered on 08/16/16 09:23; Start 08/15/16 at 09:00 Bisacodyl (Dulcolax Supp) 10 mg PRN Q12HR PRN RC CONSTIPATION; Start 08/14/16 at 22:15 Carvedilol (Coreg) 12.5 mg BIDWMEALS PO Last administered on 08/16/16 16:52; Start 08/15/16 at 08:00 Clonidine HCl (Catapres) 0.1 mg PRN DAILY PRN PO HTN; Start 08/14/16 at 22:15 Ferrous Sulfate (Feosol) 325 mg DAILY PO Last administered on 08/16/16 09:24; Start 08/15/16 at 09:00 Oxycodone HCl (Roxicodone) 5 mg PRN Q4HRS PRN PO PAIN; Start 08/14/16 at 22:15 Pantoprazole Sodium (Protonix) 40 mg DAILY PO Last administered on 08/16/16 09 :23; Start 08/15/16 at 09:00 Polyethylene Glycol (miraLAX) 17 gm DAILY PO Last administered on 08/16/16 09: 22; Start 08/15/16 at 09:00 Sennosides (Senna) 8.6 mg BID PO Last administered on 08/16/16 20:45; Start at 22:30 Thiamine HCl (Vitamin B-1) 100 mg TIDAFTMEAL PO Last administered on 08/16/16 16:52; Start 08/15/16 at 09:00 Non-Formulary Medication 7.5 mg DAILY PO Overactive Bladder; Start 08/15/16 at 09:00; Stop 08/15/16 at 09:00; Status DC Gabapentin (Neurontin) 600 mg TID PO Last administered on 08/16/16 20:44; Start 08/14/16 at 22:30 Oxybutynin Chloride (Ditropan) 5 mg BID PO Last administered on 08/16/16 20:44 ; Start 08/15/16 at 09:00 Potassium Chloride (Klor-Con) 20 meq BID PO Last administered on 08/16/16 20: 45; Start 08/15/16 at 21:00 Vitamin D (Vitamin D3) 50,000 unit WEEKLY PO ; Start 08/23/16 at 09:00 Active Scripts Active Reported Oxycodone Hcl 5 Mg Tablet 5 Mg PO PRN Q4HRS PRN Clonidine Hcl 0.1 Mg Tablet 0.1 Mg PO PRN DAILY PRN Bisacodyl 10 Mg Supp.rect 10 Mg RC PRN Q12HR PRN Acetaminophen 325 Mg Tablet 650 Mg PO PRN Q4HRS PRN Thiamine Hcl 100 Mg Tablet 100 Mg PO TIDAFTMEAL Neurontin (Gabapentin) 600 Mg Tablet 600 Mg PO TID Senna (Sennosides) 8.6 Mg Tablet 8.6 Mg PO BID Eliquis (Apixaban) 2.5 Mg Tablet 2.5 Mg PO DAILY Depakene (Valproate Sodium) 250 Mg/5 Ml Solution 100 Mg PO BID Coreg (Carvedilol) 12.5 Mg Tablet 12.5 Mg PO BIDWMEALS Mirtazapine 7.5 Mg Tablet 7.5 Mg PO QHS Pantoprazole Sodium 40 Mg Tablet.dr 40 Mg PO DAILY Norvasc (Amlodipine Besylate) 5 Mg Tablet 5 Mg PO DAILY Miralax (Polyethylene Glycol 3350) 119 Gm Powder 17 Gm PO DAILY Lexapro (Escitalopram Oxalate) 5 Mg Tablet 5 Mg PO QHS 7 Days Escitalopram Oxalate 10 Mg Tablet 10 Mg PO QHS Start 08/21/16 Ferrous Sulfate 325 Mg Tablet 325 Mg PO DAILY Enablex (Darifenacin Hydrobromide) 7.5 Mg Tab.er.24h 7.5 Mg PO DAILY Aspirin Ec (Aspirin) 81 Mg Tablet.dr 81 Mg PO DAILY Diagnosis: Problems: (1) Anxiety disorder (2) Major depressive disorder, recurrent episode (3) Impulse control disorder (4) Dementia in Alzheimer's disease with depression SYDNEE MENJIVAR MD Aug 16, 2016 22:02
[2016-08-17 05:38] VITALS: BP 129/55
[2016-08-17] MEDS: CARVEDILOL 12.5 MG TABLET PO SCH ×2 (08:00→17:29)
[2016-08-17] MEDS: POLYETHYLENE GLYCOL 3350 17 GM PACKET. PO SCH (09:19)
[2016-08-17] MEDS: OXYBUTYNIN CHLORIDE 5 MG TABLET PO SCH ×2 (09:20→19:33)
[2016-08-17] MEDS: THIAMINE 100 MG TABLET. PO SCH ×3 (09:20→17:25)
[2016-08-17] MEDS: VALPROATE ACID 250 MG/5 ML ORAL SOLUTION PO SCH ×2 (09:20→19:33)
[2016-08-17] MEDS: SENNOSIDES 8.6 MG TABLET PO SCH ×2 (09:20→19:33)
[2016-08-17] MEDS: GABAPENTIN 300 MG CAPSULE. PO SCH ×3 (09:20→19:34)
[2016-08-17] MEDS: MAGNESIUM OXIDE 400 MG TABLET PO SCH ×3 (09:21→19:33)
[2016-08-17] MEDS: ASPIRIN ENTERIC COATED 81 MG TABLET.DR. PO SCH (09:21)
[2016-08-17] MEDS: POTASSIUM CHLORIDE 20 MEQ TABLET.ER. PO SCH ×2 (09:21→19:33)
[2016-08-17] MEDS: PANTOPRAZOLE 40 MG TABLET. PO SCH (09:21)
[2016-08-17] MEDS: APIXABAN 2.5 MG TABLET PO SCH ×2 (09:21→20:06)
[2016-08-17] MEDS: FERROUS SULFATE 325 MG TABLET PO SCH (09:21)
[2016-08-17] MEDS: AMLODIPINE BESYLATE 5 MG TABLET PO SCH (09:54)
[2016-08-17 15:37] VITALS: BP 117/53
[2016-08-17] MEDS: ESCITALOPRAM 5 MG TABLET PO SCH (19:33)
[2016-08-17] MEDS: MIRTAZAPINE 7.5 MG TABLET. PO SCH (19:33)
--- NOTE | 2016-08-17 21:09 | PDOC ---
Exam Bj Demential Exam: Bj Note: Please also refer to the separate dictated note~for this date of service dictated separately.~Patient seen individually. Discussed the patient with Nursing staff reviewed the chart.~Reviewed interim history and current functioning. Reviewed vital signs,~Labs/ Radiology~and current medications noted below. Continue current treatment with the changes noted in the dictated addendum note Assessment: Vital Signs: Vital Signs Date Time Temp Pulse Resp B/P Pulse Ox O2 Delivery O2 Flow Rate FiO2 08/17/16 17:29 55 117/53 08/17/16 15:37 97.8 18 98 08/16/16 15:42 Room Air I&O Intake and Output 08/17/16 07:00 Intake Total 720 ml Balance 720 ml Intake Oral 720 ml Current Medications: Meds: Current Medications Magnesium Sulfate (Magnesium Sulfate PREMIX 2GM) 50 ml @ 25 mls/hr 1X ONCE IV ; Start 08/14/16 at 21:00; Stop 08/14/16 at 22:15; Status DC Furosemide (Lasix) 40 mg 1X ONCE PO Last administered on 08/14/16 20:53; Start 08/14/16 at 21:00; Stop 08/14/16 at 21:01; Status DC Acetaminophen (Tylenol) 650 mg PRN Q6HRS PRN PO PAIN / TEMP; Start 08/14/16 at 22:00 Multi-Ingredient Ointment (Analgesic [place]) 1 sidra PRN QID PRN TP MUSCLE PAIN; Start 08/14/16 at 22:00 Al Hydroxide/Mg Hydroxide (Mylanta Plus Xs) 15 ml PRN AFTMEALHC PRN PO DYSPEPSIA; Start 08/14/16 at 22:00 Magnesium Hydroxide (Milk Of Magnesia) 2,400 mg PRN QHS PRN PO CONSTIPATION; Start 08/14/16 at 22:00 Escitalopram Oxalate (Lexapro) 10 mg QHS PO ; Start 08/21/16 at 21:00 Escitalopram Oxalate (Lexapro) 5 mg QHS PO Last administered on 08/17/16 19:33 ; Start 08/14/16 at 22:30; Stop 08/20/16 at 22:00 Mirtazapine (Remeron) 7.5 mg QHS PO Last administered on 08/17/16 19:33; Start 08/14/16 at 22:30 Valproic Acid (Depakene) 100 mg BID PO Last administered on 08/17/16 19:33; Start 08/14/16 at 22:30 Magnesium Oxide (Magnesium Oxide) 400 mg TID PO Last administered on 08/17/16 19:33; Start 08/14/16 at 22:30 Amlodipine Besylate (Norvasc) 5 mg DAILY PO Last administered on 08/17/16 09: 54; Start 08/15/16 at 09:00 Apixaban (Eliquis) 2.5 mg DAILY PO Last administered on 08/17/16 09:21; Start 08/15/16 at 09:00; Stop 08/17/16 at 18:45; Status DC Aspirin (Aspirin Enteric Coated) 81 mg DAILY PO Last administered on 08/17/16 09:21; Start 08/15/16 at 09:00 Bisacodyl (Dulcolax Supp) 10 mg PRN Q12HR PRN RC CONSTIPATION; Start 08/14/16 at 22:15 Carvedilol (Coreg) 12.5 mg BIDWMEALS PO Last administered on 08/17/16 17:29; Start 08/15/16 at 08:00 Clonidine HCl (Catapres) 0.1 mg PRN DAILY PRN PO HTN; Start 08/14/16 at 22:15 Ferrous Sulfate (Feosol) 325 mg DAILY PO Last administered on 08/17/16 09:21; Start 08/15/16 at 09:00 Oxycodone HCl (Roxicodone) 5 mg PRN Q4HRS PRN PO PAIN; Start 08/14/16 at 22:15 Pantoprazole Sodium (Protonix) 40 mg DAILY PO Last administered on 08/17/16 09 :21; Start 08/15/16 at 09:00 Polyethylene Glycol (miraLAX) 17 gm DAILY PO Last administered on 08/17/16 09: 19; Start 08/15/16 at 09:00 Sennosides (Senna) 8.6 mg BID PO Last administered on 08/17/16 19:33; Start at 22:30 Thiamine HCl (Vitamin B-1) 100 mg TIDAFTMEAL PO Last administered on 08/17/16 17:25; Start 08/15/16 at 09:00 Non-Formulary Medication 7.5 mg DAILY PO Overactive Bladder; Start 08/15/16 at 09:00; Stop 08/15/16 at 09:00; Status DC Gabapentin (Neurontin) 600 mg TID PO Last administered on 08/17/16 19:34; Start 08/14/16 at 22:30 Oxybutynin Chloride (Ditropan) 5 mg BID PO Last administered on 08/17/16 19:33 ; Start 08/15/16 at 09:00 Potassium Chloride (Klor-Con) 20 meq BID PO Last administered on 08/17/16 19: 33; Start 08/15/16 at 21:00 Vitamin D (Vitamin D3) 50,000 unit WEEKLY PO ; Start 08/23/16 at 09:00 Apixaban (Eliquis) 2.5 mg BID PO Last administered on 08/17/16 20:06; Start at 21:00 Active Scripts Active Reported Oxycodone Hcl 5 Mg Tablet 5 Mg PO PRN Q4HRS PRN Clonidine Hcl 0.1 Mg Tablet 0.1 Mg PO PRN DAILY PRN Bisacodyl 10 Mg Supp.rect 10 Mg RC PRN Q12HR PRN Acetaminophen 325 Mg Tablet 650 Mg PO PRN Q4HRS PRN Thiamine Hcl 100 Mg Tablet 100 Mg PO TIDAFTMEAL Neurontin (Gabapentin) 600 Mg Tablet 600 Mg PO TID Senna (Sennosides) 8.6 Mg Tablet 8.6 Mg PO BID Eliquis (Apixaban) 2.5 Mg Tablet 2.5 Mg PO DAILY Depakene (Valproate Sodium) 250 Mg/5 Ml Solution 100 Mg PO BID Coreg (Carvedilol) 12.5 Mg Tablet 12.5 Mg PO BIDWMEALS Mirtazapine 7.5 Mg Tablet 7.5 Mg PO QHS Pantoprazole Sodium 40 Mg Tablet.dr 40 Mg PO DAILY Norvasc (Amlodipine Besylate) 5 Mg Tablet 5 Mg PO DAILY Miralax (Polyethylene Glycol 3350) 119 Gm Powder 17 Gm PO DAILY Lexapro (Escitalopram Oxalate) 5 Mg Tablet 5 Mg PO QHS 7 Days Escitalopram Oxalate 10 Mg Tablet 10 Mg PO QHS Start 08/21/16 Ferrous Sulfate 325 Mg Tablet 325 Mg PO DAILY Enablex (Darifenacin Hydrobromide) 7.5 Mg Tab.er.24h 7.5 Mg PO DAILY Aspirin Ec (Aspirin) 81 Mg Tablet.dr 81 Mg PO DAILY Diagnosis: Problems: (1) Dementia (2) Anxiety disorder (3) Impulse control disorder (4) Major depressive disorder, recurrent episode (5) Dementia in Alzheimer's disease with depression SYDNEE MENJIVAR MD Aug 17, 2016 21:09
[2016-08-18 06:02] VITALS: BP 160/90
[2016-08-18] MEDS: CARVEDILOL 12.5 MG TABLET PO SCH ×2 (08:00→17:00)
[2016-08-18] MEDS: SENNOSIDES 8.6 MG TABLET PO SCH ×2 (09:29→20:23)
[2016-08-18] MEDS: VALPROATE ACID 250 MG/5 ML ORAL SOLUTION PO SCH ×2 (09:29→20:23)
[2016-08-18] MEDS: THIAMINE 100 MG TABLET. PO SCH ×3 (09:29→18:00)
[2016-08-18] MEDS: MAGNESIUM OXIDE 400 MG TABLET PO SCH ×3 (09:29→20:25)
[2016-08-18] MEDS: POLYETHYLENE GLYCOL 3350 17 GM PACKET. PO SCH (09:29)
[2016-08-18] MEDS: OXYBUTYNIN CHLORIDE 5 MG TABLET PO SCH ×2 (09:30→20:23)
[2016-08-18] MEDS: AMLODIPINE BESYLATE 5 MG TABLET PO SCH (09:30)
[2016-08-18] MEDS: ASPIRIN ENTERIC COATED 81 MG TABLET.DR. PO SCH (09:31)
[2016-08-18] MEDS: GABAPENTIN 300 MG CAPSULE. PO SCH ×3 (09:31→20:23)
[2016-08-18] MEDS: FERROUS SULFATE 325 MG TABLET PO SCH (09:31)
[2016-08-18] MEDS: POTASSIUM CHLORIDE 20 MEQ TABLET.ER. PO SCH ×2 (09:31→20:23)
[2016-08-18] MEDS: PANTOPRAZOLE 40 MG TABLET. PO SCH (09:31)
[2016-08-18] MEDS: APIXABAN 2.5 MG TABLET PO SCH ×2 (09:31→20:25)
[2016-08-18 09:43] VITALS: BP 159/75
--- NOTE | 2016-08-18 10:08 | PN ---
DATE: 08/17/2016 PSYCHIATRIC PROGRESS NOTE This is a late entry for 08/17/2016 covers elements not covered in my initial note of 08/17/2016. SUBJECTIVE: The patient was staffed at a treatment team meeting with the entire team morning of 08/17/2016. I met with her individually evening of 08/17/2016. The patient remains somewhat anxious, depressed, confused, and as before, continues to ask orientation questions of me when questioned her on this. She remains somewhat resistive to taking medications, delusional, disorganized, but not aggressive. She has not been yelling. REVIEW OF SYSTEMS: Ambulation impaired in a wheelchair. No CV, , pulmonary, eye system symptoms on review. MENTAL STATUS EXAM: Oriented to herself and situation. Speech has some latency, coherent. Abstraction fair, computation impaired, language function intact. Mood and affect withdrawn. IMPRESSION: Major depressive disorder, rule out psychotic features; major neurocognitive disorder, early Alzheimer, vascular with depression, delusion. PLAN: Continue current psychotropics. Adjust further as clinically indicated. SYDNEE MENJIVAR MD DR: GUNJAN/susannah JOB#: [id number] / [id number]
--- NOTE | 2016-08-18 10:11 | PN ---
DATE: 08/16/2016 PSYCHIATRIC PROGRESS NOTE This is a late entry 08/16/2016, covers elements not covered in my initial note. SUBJECTIVE: Reviewed the patient's history. Per nursing report, the patient has done little better. She is aware of the year, not of the month, know she is in the hospital, unaware of where she is. Attended activities and occupational therapy on 08/16/2016. REVIEW OF SYSTEMS: Ambulation impaired, in her wheelchair. No CV, , pulmonary, eye system symptoms on review. MENTAL STATUS EXAM: Oriented to herself and situation. Speech has some latency, she answers orientation questions by asking those questions right back to me, trying to hide what she does not know. Abstraction fair, computation impaired, language function intact, attention span short, mood and affect somewhat withdrawn. LABORATORY DATA: Reviewed. IMPRESSION: Major depressive disorder with psychotic features; major neurocognitive disorder, early Alzheimer, vascular with depression; anxiety disorder, unspecified. PLAN: Increase Lexapro gradually to 10 mg a day, Depakene will be continued at current dosage, Remeron 7.5 at bedtime. Consider adding Seroquel of delusions, mood lability resurfaces. MAN Abelardo MENJIVAR MD DR: GUNJAN/susannah JOB#: [id number] / [id number]
[2016-08-18 15:44] VITALS: BP 153/73
[2016-08-18] MEDS: ESCITALOPRAM 5 MG TABLET PO SCH (20:23)
[2016-08-18] MEDS: MIRTAZAPINE 7.5 MG TABLET. PO SCH (20:23)
--- NOTE | 2016-08-18 21:12 | PDOC ---
Exam Bj Demential Exam: Bj Note: Please also refer to the separate dictated note~for this date of service dictated separately.~Patient seen individually. Discussed the patient with Nursing staff reviewed the chart.~Reviewed interim history and current functioning. Reviewed vital signs,~Labs/ Radiology~and current medications noted below. Continue current treatment with the changes noted in the dictated addendum note Assessment: Vital Signs: Vital Signs Date Time Temp Pulse Resp B/P Pulse Ox O2 Delivery O2 Flow Rate FiO2 08/18/16 17:00 67 153/73 08/18/16 15:44 97.6 20 98 08/16/16 15:42 Room Air I&O Intake and Output 08/18/16 07:00 Intake Total 600 ml Balance 600 ml Intake Oral 600 ml # Bowel Movements 1 Current Medications: Meds: Current Medications Magnesium Sulfate (Magnesium Sulfate PREMIX 2GM) 50 ml @ 25 mls/hr 1X ONCE IV ; Start 08/14/16 at 21:00; Stop 08/14/16 at 22:15; Status DC Furosemide (Lasix) 40 mg 1X ONCE PO Last administered on 08/14/16 20:53; Start 08/14/16 at 21:00; Stop 08/14/16 at 21:01; Status DC Acetaminophen (Tylenol) 650 mg PRN Q6HRS PRN PO PAIN / TEMP; Start 08/14/16 at 22:00 Multi-Ingredient Ointment (Analgesic [place]) 1 sidra PRN QID PRN TP MUSCLE PAIN; Start 08/14/16 at 22:00 Al Hydroxide/Mg Hydroxide (Mylanta Plus Xs) 15 ml PRN AFTMEALHC PRN PO DYSPEPSIA; Start 08/14/16 at 22:00 Magnesium Hydroxide (Milk Of Magnesia) 2,400 mg PRN QHS PRN PO CONSTIPATION; Start 08/14/16 at 22:00 Escitalopram Oxalate (Lexapro) 10 mg QHS PO ; Start 08/21/16 at 21:00 Escitalopram Oxalate (Lexapro) 5 mg QHS PO Last administered on 08/18/16 20:23 ; Start 08/14/16 at 22:30; Stop 08/20/16 at 22:00 Mirtazapine (Remeron) 7.5 mg QHS PO Last administered on 08/18/16 20:23; Start 08/14/16 at 22:30 Valproic Acid (Depakene) 100 mg BID PO Last administered on 08/18/16 20:23; Start 08/14/16 at 22:30 Magnesium Oxide (Magnesium Oxide) 400 mg TID PO Last administered on 08/18/16 20:25; Start 08/14/16 at 22:30 Amlodipine Besylate (Norvasc) 5 mg DAILY PO Last administered on 08/18/16 09: 30; Start 08/15/16 at 09:00 Apixaban (Eliquis) 2.5 mg DAILY PO Last administered on 08/17/16 09:21; Start 08/15/16 at 09:00; Stop 08/17/16 at 18:45; Status DC Aspirin (Aspirin Enteric Coated) 81 mg DAILY PO Last administered on 08/18/16 09:31; Start 08/15/16 at 09:00 Bisacodyl (Dulcolax Supp) 10 mg PRN Q12HR PRN RC CONSTIPATION; Start 08/14/16 at 22:15 Carvedilol (Coreg) 12.5 mg BIDWMEALS PO Last administered on 08/18/16 17:00; Start 08/15/16 at 08:00 Clonidine HCl (Catapres) 0.1 mg PRN DAILY PRN PO HTN; Start 08/14/16 at 22:15 Ferrous Sulfate (Feosol) 325 mg DAILY PO Last administered on 08/18/16 09:31; Start 08/15/16 at 09:00 Oxycodone HCl (Roxicodone) 5 mg PRN Q4HRS PRN PO PAIN; Start 08/14/16 at 22:15 Pantoprazole Sodium (Protonix) 40 mg DAILY PO Last administered on 08/18/16 09 :31; Start 08/15/16 at 09:00 Polyethylene Glycol (miraLAX) 17 gm DAILY PO Last administered on 08/18/16 09: 29; Start 08/15/16 at 09:00 Sennosides (Senna) 8.6 mg BID PO Last administered on 08/18/16 20:23; Start at 22:30 Thiamine HCl (Vitamin B-1) 100 mg TIDAFTMEAL PO Last administered on 08/18/16 18:00; Start 08/15/16 at 09:00 Non-Formulary Medication 7.5 mg DAILY PO Overactive Bladder; Start 08/15/16 at 09:00; Stop 08/15/16 at 09:00; Status DC Gabapentin (Neurontin) 600 mg TID PO Last administered on 08/18/16 20:23; Start 08/14/16 at 22:30 Oxybutynin Chloride (Ditropan) 5 mg BID PO Last administered on 08/18/16 20:23 ; Start 08/15/16 at 09:00 Potassium Chloride (Klor-Con) 20 meq BID PO Last administered on 08/18/16 20: 23; Start 08/15/16 at 21:00 Vitamin D (Vitamin D3) 50,000 unit WEEKLY PO ; Start 08/23/16 at 09:00 Apixaban (Eliquis) 2.5 mg BID PO Last administered on 08/18/16 20:25; Start at 21:00 Active Scripts Active Reported Oxycodone Hcl 5 Mg Tablet 5 Mg PO PRN Q4HRS PRN Clonidine Hcl 0.1 Mg Tablet 0.1 Mg PO PRN DAILY PRN Bisacodyl 10 Mg Supp.rect 10 Mg RC PRN Q12HR PRN Acetaminophen 325 Mg Tablet 650 Mg PO PRN Q4HRS PRN Thiamine Hcl 100 Mg Tablet 100 Mg PO TIDAFTMEAL Neurontin (Gabapentin) 600 Mg Tablet 600 Mg PO TID Senna (Sennosides) 8.6 Mg Tablet 8.6 Mg PO BID Eliquis (Apixaban) 2.5 Mg Tablet 2.5 Mg PO DAILY Depakene (Valproate Sodium) 250 Mg/5 Ml Solution 100 Mg PO BID Coreg (Carvedilol) 12.5 Mg Tablet 12.5 Mg PO BIDWMEALS Mirtazapine 7.5 Mg Tablet 7.5 Mg PO QHS Pantoprazole Sodium 40 Mg Tablet.dr 40 Mg PO DAILY Norvasc (Amlodipine Besylate) 5 Mg Tablet 5 Mg PO DAILY Miralax (Polyethylene Glycol 3350) 119 Gm Powder 17 Gm PO DAILY Lexapro (Escitalopram Oxalate) 5 Mg Tablet 5 Mg PO QHS 7 Days Escitalopram Oxalate 10 Mg Tablet 10 Mg PO QHS Start 08/21/16 Ferrous Sulfate 325 Mg Tablet 325 Mg PO DAILY Enablex (Darifenacin Hydrobromide) 7.5 Mg Tab.er.24h 7.5 Mg PO DAILY Aspirin Ec (Aspirin) 81 Mg Tablet. 81 Mg PO DAILY Diagnosis: Problems: (1) Dementia (2) Anxiety disorder (3) Impulse control disorder (4) Major depressive disorder, recurrent episode (5) Dementia in Alzheimer's disease with depression SYDNEE MENJIVAR MD Aug 18, 2016 21:12
[2016-08-19 06:07] VITALS: BP 128/59
[2016-08-19] MEDS: PANTOPRAZOLE 40 MG TABLET. PO SCH (08:06)
[2016-08-19] MEDS: POLYETHYLENE GLYCOL 3350 17 GM PACKET. PO SCH (08:06)
[2016-08-19] MEDS: MAGNESIUM OXIDE 400 MG TABLET PO SCH ×3 (08:06→19:41)
[2016-08-19] MEDS: OXYBUTYNIN CHLORIDE 5 MG TABLET PO SCH ×2 (08:07→19:40)
[2016-08-19] MEDS: APIXABAN 2.5 MG TABLET PO SCH ×2 (08:07→19:40)
[2016-08-19] MEDS: AMLODIPINE BESYLATE 5 MG TABLET PO SCH (08:07)
[2016-08-19] MEDS: SENNOSIDES 8.6 MG TABLET PO SCH ×2 (08:07→19:40)
[2016-08-19] MEDS: ASPIRIN ENTERIC COATED 81 MG TABLET.DR. PO SCH (08:07)
[2016-08-19] MEDS: VALPROATE ACID 250 MG/5 ML ORAL SOLUTION PO SCH ×2 (08:08→19:40)
[2016-08-19] MEDS: POTASSIUM CHLORIDE 20 MEQ TABLET.ER. PO SCH ×2 (08:08→19:41)
[2016-08-19] MEDS: FERROUS SULFATE 325 MG TABLET PO SCH (08:08)
[2016-08-19] MEDS: GABAPENTIN 300 MG CAPSULE. PO SCH ×3 (08:08→19:40)
[2016-08-19] MEDS: CARVEDILOL 12.5 MG TABLET PO SCH ×2 (08:08→16:35)
[2016-08-19] MEDS: THIAMINE 100 MG TABLET. PO SCH ×3 (08:08→16:34)
--- NOTE | 2016-08-19 09:51 | PDOC ---
Exam Bj Demential Exam: Bj Note: Please also refer to the separate dictated note~for this date of service dictated separately.~Patient seen individually. Discussed the patient with Nursing staff reviewed the chart.~Reviewed interim history and current functioning. Reviewed vital signs,~Labs/ Radiology~and current medications noted below. Continue current treatment with the changes noted in the dictated addendum note Assessment: Vital Signs: Vital Signs Date Time Temp Pulse Resp B/P Pulse Ox O2 Delivery O2 Flow Rate FiO2 08/19/16 08:08 66 128/59 08/19/16 06:07 97.7 18 94 08/16/16 15:42 Room Air I&O Intake and Output 08/19/16 07:00 Intake Total 840 ml Balance 840 ml Intake Oral 840 ml Current Medications: Meds: Current Medications Magnesium Sulfate (Magnesium Sulfate PREMIX 2GM) 50 ml @ 25 mls/hr 1X ONCE IV ; Start 08/14/16 at 21:00; Stop 08/14/16 at 22:15; Status DC Furosemide (Lasix) 40 mg 1X ONCE PO Last administered on 08/14/16 20:53; Start 08/14/16 at 21:00; Stop 08/14/16 at 21:01; Status DC Acetaminophen (Tylenol) 650 mg PRN Q6HRS PRN PO PAIN / TEMP; Start 08/14/16 at 22:00 Multi-Ingredient Ointment (Analgesic [place]) 1 sidra PRN QID PRN TP MUSCLE PAIN; Start 08/14/16 at 22:00 Al Hydroxide/Mg Hydroxide (Mylanta Plus Xs) 15 ml PRN AFTMEALHC PRN PO DYSPEPSIA; Start 08/14/16 at 22:00 Magnesium Hydroxide (Milk Of Magnesia) 2,400 mg PRN QHS PRN PO CONSTIPATION; Start 08/14/16 at 22:00 Escitalopram Oxalate (Lexapro) 10 mg QHS PO ; Start 08/21/16 at 21:00 Escitalopram Oxalate (Lexapro) 5 mg QHS PO Last administered on 08/18/16 20:23 ; Start 08/14/16 at 22:30; Stop 08/20/16 at 22:00 Mirtazapine (Remeron) 7.5 mg QHS PO Last administered on 08/18/16 20:23; Start 08/14/16 at 22:30 Valproic Acid (Depakene) 100 mg BID PO Last administered on 08/19/16 08:08; Start 08/14/16 at 22:30 Magnesium Oxide (Magnesium Oxide) 400 mg TID PO Last administered on 08/19/16 08:06; Start 08/14/16 at 22:30 Amlodipine Besylate (Norvasc) 5 mg DAILY PO Last administered on 08/19/16 08: 07; Start 08/15/16 at 09:00 Apixaban (Eliquis) 2.5 mg DAILY PO Last administered on 08/17/16 09:21; Start 08/15/16 at 09:00; Stop 08/17/16 at 18:45; Status DC Aspirin (Aspirin Enteric Coated) 81 mg DAILY PO Last administered on 08/19/16 08:07; Start 08/15/16 at 09:00 Bisacodyl (Dulcolax Supp) 10 mg PRN Q12HR PRN RC CONSTIPATION; Start 08/14/16 at 22:15 Carvedilol (Coreg) 12.5 mg BIDWMEALS PO Last administered on 08/19/16 08:08; Start 08/15/16 at 08:00 Clonidine HCl (Catapres) 0.1 mg PRN DAILY PRN PO HTN; Start 08/14/16 at 22:15 Ferrous Sulfate (Feosol) 325 mg DAILY PO Last administered on 08/19/16 08:08; Start 08/15/16 at 09:00 Oxycodone HCl (Roxicodone) 5 mg PRN Q4HRS PRN PO PAIN; Start 08/14/16 at 22:15 Pantoprazole Sodium (Protonix) 40 mg DAILY PO Last administered on 08/19/16 08 :06; Start 08/15/16 at 09:00 Polyethylene Glycol (miraLAX) 17 gm DAILY PO Last administered on 08/19/16 08: 06; Start 08/15/16 at 09:00 Sennosides (Senna) 8.6 mg BID PO Last administered on 08/19/16 08:07; Start at 22:30 Thiamine HCl (Vitamin B-1) 100 mg TIDAFTMEAL PO Last administered on 08/19/16 08:08; Start 08/15/16 at 09:00 Non-Formulary Medication 7.5 mg DAILY PO Overactive Bladder; Start 08/15/16 at 09:00; Stop 08/15/16 at 09:00; Status DC Gabapentin (Neurontin) 600 mg TID PO Last administered on 08/19/16 08:08; Start 08/14/16 at 22:30 Oxybutynin Chloride (Ditropan) 5 mg BID PO Last administered on 08/19/16 08:07 ; Start 08/15/16 at 09:00 Potassium Chloride (Klor-Con) 20 meq BID PO Last administered on 08/19/16 08: 08; Start 08/15/16 at 21:00 Vitamin D (Vitamin D3) 50,000 unit WEEKLY PO ; Start 08/23/16 at 09:00 Apixaban (Eliquis) 2.5 mg BID PO Last administered on 08/19/16 08:07; Start at 21:00 Active Scripts Active Reported Oxycodone Hcl 5 Mg Tablet 5 Mg PO PRN Q4HRS PRN Clonidine Hcl 0.1 Mg Tablet 0.1 Mg PO PRN DAILY PRN Bisacodyl 10 Mg Supp.rect 10 Mg RC PRN Q12HR PRN Acetaminophen 325 Mg Tablet 650 Mg PO PRN Q4HRS PRN Thiamine Hcl 100 Mg Tablet 100 Mg PO TIDAFTMEAL Neurontin (Gabapentin) 600 Mg Tablet 600 Mg PO TID Senna (Sennosides) 8.6 Mg Tablet 8.6 Mg PO BID Eliquis (Apixaban) 2.5 Mg Tablet 2.5 Mg PO DAILY Depakene (Valproate Sodium) 250 Mg/5 Ml Solution 100 Mg PO BID Coreg (Carvedilol) 12.5 Mg Tablet 12.5 Mg PO BIDWMEALS Mirtazapine 7.5 Mg Tablet 7.5 Mg PO QHS Pantoprazole Sodium 40 Mg Tablet.dr 40 Mg PO DAILY Norvasc (Amlodipine Besylate) 5 Mg Tablet 5 Mg PO DAILY Miralax (Polyethylene Glycol 3350) 119 Gm Powder 17 Gm PO DAILY Lexapro (Escitalopram Oxalate) 5 Mg Tablet 5 Mg PO QHS 7 Days Escitalopram Oxalate 10 Mg Tablet 10 Mg PO QHS Start 08/21/16 Ferrous Sulfate 325 Mg Tablet 325 Mg PO DAILY Enablex (Darifenacin Hydrobromide) 7.5 Mg Tab.er.24h 7.5 Mg PO DAILY Aspirin Ec (Aspirin) 81 Mg Tablet. 81 Mg PO DAILY Diagnosis: Problems: (1) Dementia (2) Anxiety disorder (3) Impulse control disorder (4) Major depressive disorder, recurrent episode (5) Dementia in Alzheimer's disease with depression SYDNEE MENJIVAR MD Aug 19, 2016 09:51
[2016-08-19 16:12] VITALS: BP 125/68
[2016-08-19] MEDS: MIRTAZAPINE 7.5 MG TABLET. PO SCH (19:40)
[2016-08-19] MEDS: ESCITALOPRAM 5 MG TABLET PO SCH (19:40)
--- NOTE | 2016-08-20 06:37 | PN ---
DATE: 08/18/2016 This is a late entry for 08/18/2016, covers elements not covered in my initial note. SUBJECTIVE: Overall, the patient has done reasonably well. She attends the activities, excessive noise really bothers her, she gets irritable, labile, more depressed, takes her medications . We are awaiting records from [facility] psychologist as the indicated she had seen a psychologist in the past. REVIEW OF SYSTEMS: Ambulation impaired, in her wheelchair. No CV, , pulmonary, eye system symptoms on review. MENTAL STATUS EXAM: Oriented to herself and situation. Speech coherent, abstraction fair, computation impaired, language function intact, mood and affect dysphoric. LABORATORY DATA: Reviewed. IMPRESSION: Major depressive disorder, recurrent, in partial remission; cognitive disorder, unspecified; delusional disorder. PLAN: Continue psychotropics mentioned in my initial note, gradually increase the Lexapro to 10 mg a day. SYDNEE MENJIVAR MD DR: GUNJAN/susannah JOB#: [id number] / [id number]
[2016-08-20 06:42] VITALS: BP 151/77
--- NOTE | 2016-08-20 06:49 | PN ---
DATE: 08/19/2016 PSYCHIATRIC PROGRESS NOTE This note covers elements not covered in my initial note of 08/19/2016. SUBJECTIVE: She is compliant with her medications, was argumentative with nursing staff before going to bed last night, gets irritable with excessive noise and another patients, yelling on the unit. As I met with her, she had her head on the table in front of her, depressed, withdrawn, and distressed with the noise on the unit and I processed this with her. REVIEW OF SYSTEMS: Ambulation impaired, in her wheelchair. No CV, , pulmonary, eye system symptoms on review. MENTAL STATUS EXAM: Oriented to herself and situation. Speech has some latency, coherent. Short term memory is impaired. No active psychotic symptoms, suicidal or homicidal ideation. Mood and affect still depressed. LABORATORY DATA: Reviewed. IMPRESSION: Unchanged from initial note. PLAN: Continue Depakote, increase the Lexapro gradually, maintain Remeron. Adjust as indicated clinically. SYDNEE MENJIVAR MD DR: GUNJAN/susannah JOB#: [id number] / [id number]
[2016-08-20] MEDS: VALPROATE ACID 250 MG/5 ML ORAL SOLUTION PO SCH ×2 (08:11→19:29)
[2016-08-20] MEDS: AMLODIPINE BESYLATE 5 MG TABLET PO SCH (08:11)
[2016-08-20] MEDS: OXYBUTYNIN CHLORIDE 5 MG TABLET PO SCH ×2 (08:11→19:28)
[2016-08-20] MEDS: SENNOSIDES 8.6 MG TABLET PO SCH ×2 (08:11→19:28)
[2016-08-20] MEDS: POLYETHYLENE GLYCOL 3350 17 GM PACKET. PO SCH (08:11)
[2016-08-20] MEDS: THIAMINE 100 MG TABLET. PO SCH ×3 (08:12→16:53)
[2016-08-20] MEDS: GABAPENTIN 300 MG CAPSULE. PO SCH ×3 (08:12→19:28)
[2016-08-20] MEDS: FERROUS SULFATE 325 MG TABLET PO SCH (08:12)
[2016-08-20] MEDS: APIXABAN 2.5 MG TABLET PO SCH ×2 (08:12→19:29)
[2016-08-20] MEDS: CARVEDILOL 12.5 MG TABLET PO SCH ×2 (08:12→16:53)
[2016-08-20] MEDS: ASPIRIN ENTERIC COATED 81 MG TABLET.DR. PO SCH (08:12)
[2016-08-20] MEDS: MAGNESIUM OXIDE 400 MG TABLET PO SCH ×3 (08:12→19:28)
[2016-08-20] MEDS: PANTOPRAZOLE 40 MG TABLET. PO SCH (08:12)
[2016-08-20] MEDS: POTASSIUM CHLORIDE 20 MEQ TABLET.ER. PO SCH ×2 (08:14→19:28)
[2016-08-20 16:37] VITALS: BP 136/71
[2016-08-20] MEDS: ESCITALOPRAM 5 MG TABLET PO SCH (19:28)
[2016-08-20] MEDS: MIRTAZAPINE 7.5 MG TABLET. PO SCH (19:28)
--- NOTE | 2016-08-20 21:07 | PDOC ---
Exam Bj Demential Exam: Bj Note: Please also refer to the separate dictated note~for this date of service dictated separately.~Patient seen individually. Discussed the patient with Nursing staff reviewed the chart.~Reviewed interim history and current functioning. Reviewed vital signs,~Labs/ Radiology~and current medications noted below. Continue current treatment with the changes noted in the dictated addendum note Assessment: Vital Signs: Vital Signs Date Time Temp Pulse Resp B/P Pulse Ox O2 Delivery O2 Flow Rate FiO2 08/20/16 16:53 64 136/71 08/20/16 16:37 98.7 16 98 08/20/16 06:42 Room Air I&O Intake and Output 08/20/16 07:00 Intake Total 480 ml Balance 480 ml Intake Oral 480 ml Current Medications: Meds: Current Medications Magnesium Sulfate (Magnesium Sulfate PREMIX 2GM) 50 ml @ 25 mls/hr 1X ONCE IV ; Start 08/14/16 at 21:00; Stop 08/14/16 at 22:15; Status DC Furosemide (Lasix) 40 mg 1X ONCE PO Last administered on 08/14/16 20:53; Start 08/14/16 at 21:00; Stop 08/14/16 at 21:01; Status DC Acetaminophen (Tylenol) 650 mg PRN Q6HRS PRN PO PAIN / TEMP; Start 08/14/16 at 22:00 Multi-Ingredient Ointment (Analgesic [place]) 1 sidra PRN QID PRN TP MUSCLE PAIN; Start 08/14/16 at 22:00 Al Hydroxide/Mg Hydroxide (Mylanta Plus Xs) 15 ml PRN AFTMEALHC PRN PO DYSPEPSIA; Start 08/14/16 at 22:00 Magnesium Hydroxide (Milk Of Magnesia) 2,400 mg PRN QHS PRN PO CONSTIPATION; Start 08/14/16 at 22:00 Escitalopram Oxalate (Lexapro) 10 mg QHS PO ; Start 08/21/16 at 21:00 Escitalopram Oxalate (Lexapro) 5 mg QHS PO Last administered on 08/20/16 19:28 ; Start 08/14/16 at 22:30; Stop 08/20/16 at 22:00 Mirtazapine (Remeron) 7.5 mg QHS PO Last administered on 08/20/16 19:28; Start 08/14/16 at 22:30 Valproic Acid (Depakene) 100 mg BID PO Last administered on 08/20/16 19:29; Start 08/14/16 at 22:30 Magnesium Oxide (Magnesium Oxide) 400 mg TID PO Last administered on 08/20/16 19:28; Start 08/14/16 at 22:30 Amlodipine Besylate (Norvasc) 5 mg DAILY PO Last administered on 08/20/16 08: 11; Start 08/15/16 at 09:00 Apixaban (Eliquis) 2.5 mg DAILY PO Last administered on 08/17/16 09:21; Start 08/15/16 at 09:00; Stop 08/17/16 at 18:45; Status DC Aspirin (Aspirin Enteric Coated) 81 mg DAILY PO Last administered on 08/20/16 08:12; Start 08/15/16 at 09:00 Bisacodyl (Dulcolax Supp) 10 mg PRN Q12HR PRN RC CONSTIPATION; Start 08/14/16 at 22:15 Carvedilol (Coreg) 12.5 mg BIDWMEALS PO Last administered on 08/20/16 16:53; Start 08/15/16 at 08:00 Clonidine HCl (Catapres) 0.1 mg PRN DAILY PRN PO HTN; Start 08/14/16 at 22:15 Ferrous Sulfate (Feosol) 325 mg DAILY PO Last administered on 08/20/16 08:12; Start 08/15/16 at 09:00 Oxycodone HCl (Roxicodone) 5 mg PRN Q4HRS PRN PO PAIN; Start 08/14/16 at 22:15 Pantoprazole Sodium (Protonix) 40 mg DAILY PO Last administered on 08/20/16 08 :12; Start 08/15/16 at 09:00 Polyethylene Glycol (miraLAX) 17 gm DAILY PO Last administered on 08/20/16 08: 11; Start 08/15/16 at 09:00 Sennosides (Senna) 8.6 mg BID PO Last administered on 08/20/16 19:28; Start at 22:30 Thiamine HCl (Vitamin B-1) 100 mg TIDAFTMEAL PO Last administered on 08/20/16 16:53; Start 08/15/16 at 09:00 Non-Formulary Medication 7.5 mg DAILY PO Overactive Bladder; Start 08/15/16 at 09:00; Stop 08/15/16 at 09:00; Status DC Gabapentin (Neurontin) 600 mg TID PO Last administered on 08/20/16 19:28; Start 08/14/16 at 22:30 Oxybutynin Chloride (Ditropan) 5 mg BID PO Last administered on 08/20/16 19:28 ; Start 08/15/16 at 09:00 Potassium Chloride (Klor-Con) 20 meq BID PO Last administered on 08/20/16 19: 28; Start 08/15/16 at 21:00 Vitamin D (Vitamin D3) 50,000 unit WEEKLY PO ; Start 08/23/16 at 09:00 Apixaban (Eliquis) 2.5 mg BID PO Last administered on 08/20/16 19:29; Start at 21:00 Active Scripts Active Reported Oxycodone Hcl 5 Mg Tablet 5 Mg PO PRN Q4HRS PRN Clonidine Hcl 0.1 Mg Tablet 0.1 Mg PO PRN DAILY PRN Bisacodyl 10 Mg Supp.rect 10 Mg RC PRN Q12HR PRN Acetaminophen 325 Mg Tablet 650 Mg PO PRN Q4HRS PRN Thiamine Hcl 100 Mg Tablet 100 Mg PO TIDAFTMEAL Neurontin (Gabapentin) 600 Mg Tablet 600 Mg PO TID Senna (Sennosides) 8.6 Mg Tablet 8.6 Mg PO BID Eliquis (Apixaban) 2.5 Mg Tablet 2.5 Mg PO DAILY Depakene (Valproate Sodium) 250 Mg/5 Ml Solution 100 Mg PO BID Coreg (Carvedilol) 12.5 Mg Tablet 12.5 Mg PO BIDWMEALS Mirtazapine 7.5 Mg Tablet 7.5 Mg PO QHS Pantoprazole Sodium 40 Mg Tablet.dr 40 Mg PO DAILY Norvasc (Amlodipine Besylate) 5 Mg Tablet 5 Mg PO DAILY Miralax (Polyethylene Glycol 3350) 119 Gm Powder 17 Gm PO DAILY Lexapro (Escitalopram Oxalate) 5 Mg Tablet 5 Mg PO QHS 7 Days Escitalopram Oxalate 10 Mg Tablet 10 Mg PO QHS Start 08/21/16 Ferrous Sulfate 325 Mg Tablet 325 Mg PO DAILY Enablex (Darifenacin Hydrobromide) 7.5 Mg Tab.er.24h 7.5 Mg PO DAILY Aspirin Ec (Aspirin) 81 Mg Tablet.dr 81 Mg PO DAILY Diagnosis: Problems: (1) Dementia (2) Anxiety disorder (3) Impulse control disorder (4) Major depressive disorder, recurrent episode (5) Dementia in Alzheimer's disease with depression SYDNEE MENJIVAR MD Aug 20, 2016 21:07
[2016-08-21 05:51] VITALS: BP 150/73
[2016-08-21] MEDS: GABAPENTIN 300 MG CAPSULE. PO SCH ×3 (08:10→19:41)
[2016-08-21] MEDS: CARVEDILOL 12.5 MG TABLET PO SCH ×2 (08:10→16:49)
[2016-08-21] MEDS: ASPIRIN ENTERIC COATED 81 MG TABLET.DR. PO SCH (08:10)
[2016-08-21 08:11] LABS: HEMATOCRIT 34.3 % (36.0-47.0); HEMOGLOBIN 11.9 g/dL (12.0-15.5); RED BLOOD COUNT 3.17 x10^6/uL (3.50-5.40)
[2016-08-21] MEDS: PANTOPRAZOLE 40 MG TABLET. PO SCH (08:11)
[2016-08-21] MEDS: APIXABAN 2.5 MG TABLET PO SCH ×2 (08:11→19:43)
[2016-08-21] MEDS: OXYBUTYNIN CHLORIDE 5 MG TABLET PO SCH ×2 (08:12→19:40)
[2016-08-21] MEDS: MAGNESIUM OXIDE 400 MG TABLET PO SCH ×3 (08:12→19:41)
[2016-08-21] MEDS: THIAMINE 100 MG TABLET. PO SCH ×3 (08:12→16:47)
[2016-08-21] MEDS: SENNOSIDES 8.6 MG TABLET PO SCH ×2 (08:12→19:43)
[2016-08-21] MEDS: POTASSIUM CHLORIDE 20 MEQ TABLET.ER. PO SCH ×2 (08:12→19:41)
[2016-08-21] MEDS: VALPROATE ACID 250 MG/5 ML ORAL SOLUTION PO SCH ×2 (08:14→19:40)
[2016-08-21] MEDS: FERROUS SULFATE 325 MG TABLET PO SCH (08:14)
[2016-08-21] MEDS: POLYETHYLENE GLYCOL 3350 17 GM PACKET. PO SCH (08:14)
[2016-08-21 08:28] LABS: ALBUMIN 3.1 g/dL (3.4-5.0); ALBUMIN/GLOBULIN RATIO 0.8 (1.0-1.7); ALK PHOS 90 U/L (46-116); ALT (SGPT) 18 U/L (14-59); ANION GAP 4 (6-14); AST (SGOT) 10 U/L (15-37); BLOOD UREA NITROGEN 26 mg/dL (7-20); BUN/CREATININE RATIO 29 (6-20); CARBON DIOXIDE 33 mmol/L (21-32); CHLORIDE 107 mmol/L (98-107); CREATININE 0.9 mg/dL (0.6-1.0); GFR 59.9; GLUCOSE 95 mg/dL (70-99); POTASSIUM 4.6 mmol/L (3.5-5.1); SODIUM 144 mmol/L (136-145); TOTAL BILIRUBIN 0.3 mg/dL (0.2-1.0); TOTAL PROTEIN 6.9 g/dL (6.4-8.2)
[2016-08-21] MEDS: AMLODIPINE BESYLATE 5 MG TABLET PO SCH (08:30)
[2016-08-21 08:31] LABS: VAL ACID 14 mcg/mL (50-100)
[2016-08-21 16:57] VITALS: BP 143/70
--- NOTE | 2016-08-21 19:16 | PDOC ---
Exam Bj Demential Exam: Bj Note: Please also refer to the separate dictated note~for this date of service dictated separately.~Patient seen individually. Discussed the patient with Nursing staff reviewed the chart.~Reviewed interim history and current functioning. Reviewed vital signs,~Labs/ Radiology~and current medications noted below. Continue current treatment with the changes noted in the dictated addendum note Assessment: Vital Signs: Vital Signs Date Time Temp Pulse Resp B/P Pulse Ox O2 Delivery O2 Flow Rate FiO2 08/21/16 16:57 97.2 60 16 143/70 99 08/20/16 06:42 Room Air I&O Intake and Output 08/21/16 07:00 Intake Total 960 ml Balance 960 ml Intake Oral 960 ml # Bowel Movements 1 Labs: Laboratory Tests Test 08/21/16 08:00 White Blood Count 5.0x10^3/uL (4.0-11.0) Red Blood Count 3.17x10^6/uL (3.50-5.40) L Hemoglobin 11.9g/dL (12.0-15.5) L Hematocrit 34.3% (36.0-47.0) L Mean Corpuscular Volume 108fL (79-100) H Mean Corpuscular Hemoglobin 38pg (25-35) H Mean Corpuscular Hemoglobin Concent 35g/dL (31-37) Red Cell Distribution Width 13.0% (11.5-14.5) Platelet Count 246x10^3/uL (140-400) Sodium Level 144mmol/L (136-145) Potassium Level 4.6mmol/L (3.5-5.1) Chloride Level 107mmol/L (98-107) Carbon Dioxide Level 33mmol/L (21-32) H Anion Gap 4 (6-14) L Blood Urea Nitrogen 26mg/dL (7-20) H Creatinine 0.9mg/dL (0.6-1.0) Estimated GFR (Cockcroft-Gault) 59.9 BUN/Creatinine Ratio 29 (6-20) H Glucose Level 95mg/dL (70-99) Calcium Level 9.0mg/dL (8.5-10.1) Total Bilirubin 0.3mg/dL (0.2-1.0) Aspartate Amino Transferase (AST) 10U/L (15-37) L Alanine Aminotransferase (ALT) 18U/L (14-59) Alkaline Phosphatase 90U/L (46-116) Total Protein 6.9g/dL (6.4-8.2) Albumin 3.1g/dL (3.4-5.0) L Albumin/Globulin Ratio 0.8 (1.0-1.7) L Valproic Acid Level 14mcg/mL (50-100) L Valproic Acid Last Dose Date 08/20/16 Valproic Acid Last Dose Time 2100 Current Medications: Meds: Current Medications Magnesium Sulfate (Magnesium Sulfate PREMIX 2GM) 50 ml @ 25 mls/hr 1X ONCE IV ; Start 08/14/16 at 21:00; Stop 08/14/16 at 22:15; Status DC Furosemide (Lasix) 40 mg 1X ONCE PO Last administered on 08/14/16 20:53; Start 08/14/16 at 21:00; Stop 08/14/16 at 21:01; Status DC Acetaminophen (Tylenol) 650 mg PRN Q6HRS PRN PO PAIN / TEMP; Start 08/14/16 at 22:00 Multi-Ingredient Ointment (Analgesic [place]) 1 sidra PRN QID PRN TP MUSCLE PAIN; Start 08/14/16 at 22:00 Al Hydroxide/Mg Hydroxide (Mylanta Plus Xs) 15 ml PRN AFTMEALHC PRN PO DYSPEPSIA; Start 08/14/16 at 22:00 Magnesium Hydroxide (Milk Of Magnesia) 2,400 mg PRN QHS PRN PO CONSTIPATION; Start 08/14/16 at 22:00 Escitalopram Oxalate (Lexapro) 10 mg QHS PO ; Start 08/21/16 at 21:00 Escitalopram Oxalate (Lexapro) 5 mg QHS PO Last administered on 08/20/16 19:28 ; Start 08/14/16 at 22:30; Stop 08/20/16 at 22:00; Status DC Mirtazapine (Remeron) 7.5 mg QHS PO Last administered on 08/20/16 19:28; Start 08/14/16 at 22:30 Valproic Acid (Depakene) 100 mg BID PO Last administered on 08/21/16 08:14; Start 08/14/16 at 22:30 Magnesium Oxide (Magnesium Oxide) 400 mg TID PO Last administered on 08/21/16 13:35; Start 08/14/16 at 22:30 Amlodipine Besylate (Norvasc) 5 mg DAILY PO Last administered on 08/21/16 08: 30; Start 08/15/16 at 09:00 Apixaban (Eliquis) 2.5 mg DAILY PO Last administered on 08/17/16 09:21; Start 08/15/16 at 09:00; Stop 08/17/16 at 18:45; Status DC Aspirin (Aspirin Enteric Coated) 81 mg DAILY PO Last administered on 08/21/16 08:10; Start 08/15/16 at 09:00 Bisacodyl (Dulcolax Supp) 10 mg PRN Q12HR PRN RC CONSTIPATION; Start 08/14/16 at 22:15 Carvedilol (Coreg) 12.5 mg BIDWMEALS PO Last administered on 08/21/16 16:49; Start 08/15/16 at 08:00 Clonidine HCl (Catapres) 0.1 mg PRN DAILY PRN PO HTN; Start 08/14/16 at 22:15 Ferrous Sulfate (Feosol) 325 mg DAILY PO Last administered on 08/21/16 08:14; Start 08/15/16 at 09:00 Oxycodone HCl (Roxicodone) 5 mg PRN Q4HRS PRN PO PAIN; Start 08/14/16 at 22:15 Pantoprazole Sodium (Protonix) 40 mg DAILY PO Last administered on 08/21/16 08 :11; Start 08/15/16 at 09:00 Polyethylene Glycol (miraLAX) 17 gm DAILY PO Last administered on 08/21/16 08: 14; Start 08/15/16 at 09:00 Sennosides (Senna) 8.6 mg BID PO Last administered on 08/21/16 08:12; Start at 22:30 Thiamine HCl (Vitamin B-1) 100 mg TIDAFTMEAL PO Last administered on 08/21/16 16:47; Start 08/15/16 at 09:00 Non-Formulary Medication 7.5 mg DAILY PO Overactive Bladder; Start 08/15/16 at 09:00; Stop 08/15/16 at 09:00; Status DC Gabapentin (Neurontin) 600 mg TID PO Last administered on 08/21/16 13:35; Start 08/14/16 at 22:30 Oxybutynin Chloride (Ditropan) 5 mg BID PO Last administered on 08/21/16 08:12 ; Start 08/15/16 at 09:00 Potassium Chloride (Klor-Con) 20 meq BID PO Last administered on 08/21/16 08: 12; Start 08/15/16 at 21:00 Vitamin D (Vitamin D3) 50,000 unit WEEKLY PO ; Start 08/23/16 at 09:00 Apixaban (Eliquis) 2.5 mg BID PO Last administered on 08/21/16 08:11; Start at 21:00 Active Scripts Active Reported Oxycodone Hcl 5 Mg Tablet 5 Mg PO PRN Q4HRS PRN Clonidine Hcl 0.1 Mg Tablet 0.1 Mg PO PRN DAILY PRN Bisacodyl 10 Mg Supp.rect 10 Mg RC PRN Q12HR PRN Acetaminophen 325 Mg Tablet 650 Mg PO PRN Q4HRS PRN Thiamine Hcl 100 Mg Tablet 100 Mg PO TIDAFTMEAL Neurontin (Gabapentin) 600 Mg Tablet 600 Mg PO TID Senna (Sennosides) 8.6 Mg Tablet 8.6 Mg PO BID Eliquis (Apixaban) 2.5 Mg Tablet 2.5 Mg PO DAILY Depakene (Valproate Sodium) 250 Mg/5 Ml Solution 100 Mg PO BID Coreg (Carvedilol) 12.5 Mg Tablet 12.5 Mg PO BIDWMEALS Mirtazapine 7.5 Mg Tablet 7.5 Mg PO QHS Pantoprazole Sodium 40 Mg Tablet.dr 40 Mg PO DAILY Norvasc (Amlodipine Besylate) 5 Mg Tablet 5 Mg PO DAILY Miralax (Polyethylene Glycol 3350) 119 Gm Powder 17 Gm PO DAILY Lexapro (Escitalopram Oxalate) 5 Mg Tablet 5 Mg PO QHS 7 Days Escitalopram Oxalate 10 Mg Tablet 10 Mg PO QHS Start 08/21/16 Ferrous Sulfate 325 Mg Tablet 325 Mg PO DAILY Enablex (Darifenacin Hydrobromide) 7.5 Mg Tab.er.24h 7.5 Mg PO DAILY Aspirin Ec (Aspirin) 81 Mg Tablet.dr 81 Mg PO DAILY Diagnosis: Problems: (1) Dementia (2) Anxiety disorder (3) Impulse control disorder (4) Major depressive disorder, recurrent episode (5) Dementia in Alzheimer's disease with depression SYDNEE MENJIVAR MD Aug 21, 2016 19:16
[2016-08-21] MEDS: MIRTAZAPINE 7.5 MG TABLET. PO SCH (19:42)
[2016-08-21] MEDS: ESCITALOPRAM 10 MG TABLET. PO SCH (20:04)
--- NOTE | 2016-08-21 21:57 | PN ---
DATE: 08/20/2016 PSYCHIATRIC PROGRESS NOTE This is a late entry 08/20/2016, covers elements not covered in my initial note. SUBJECTIVE: Overall, the patient remains somewhat withdrawn, depressed, gets quite agitated with excessive noise on the unit and some of the other demented patients. Yelling seems to bother her. She is compliant with the medication. Complains of some nausea. Initially told me she would not go for supper, but then she did. REVIEW OF SYSTEMS: Ambulation impaired, in her wheelchair. No CV, , pulmonary, eye system symptoms on review. MENTAL STATUS EXAM: Oriented to herself and situation. Speech coherent, abstraction fair, computation impaired, language function intact, attention span short. Mood and affect somewhat withdrawn. LABORATORY DATA: Reviewed. 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 PLAN: Continue psychotropics mentioned in my initial note. Adjust further as clinically indicated. SYDNEE MENJIVAR MD DR: GUNJAN/susannah JOB#: [id number] / [id number]
[2016-08-22 06:11] VITALS: BP 156/66
[2016-08-22] MEDS: VALPROATE ACID 250 MG/5 ML ORAL SOLUTION PO SCH ×2 (08:10→19:42)
[2016-08-22] MEDS: ASPIRIN ENTERIC COATED 81 MG TABLET.DR. PO SCH (08:11)
[2016-08-22] MEDS: CARVEDILOL 12.5 MG TABLET PO SCH ×2 (08:11→16:37)
[2016-08-22] MEDS: MAGNESIUM OXIDE 400 MG TABLET PO SCH ×3 (08:11→19:43)
[2016-08-22] MEDS: POTASSIUM CHLORIDE 20 MEQ TABLET.ER. PO SCH ×2 (08:11→19:43)
[2016-08-22] MEDS: GABAPENTIN 300 MG CAPSULE. PO SCH ×3 (08:11→19:44)
[2016-08-22] MEDS: FERROUS SULFATE 325 MG TABLET PO SCH (08:12)
[2016-08-22] MEDS: AMLODIPINE BESYLATE 5 MG TABLET PO SCH (08:12)
[2016-08-22] MEDS: SENNOSIDES 8.6 MG TABLET PO SCH ×2 (08:12→19:44)
[2016-08-22] MEDS: OXYBUTYNIN CHLORIDE 5 MG TABLET PO SCH ×2 (08:12→19:42)
[2016-08-22] MEDS: THIAMINE 100 MG TABLET. PO SCH ×3 (08:12→16:36)
[2016-08-22] MEDS: POLYETHYLENE GLYCOL 3350 17 GM PACKET. PO SCH (08:12)
[2016-08-22] MEDS: PANTOPRAZOLE 40 MG TABLET. PO SCH (08:12)
[2016-08-22] MEDS: APIXABAN 2.5 MG TABLET PO SCH ×2 (08:12→19:42)
[2016-08-22 15:49] VITALS: BP 127/56
[2016-08-22] MEDS: OXYCODONE IR 5 MG TABLET. PO PRN (18:37)
[2016-08-22] MEDS: ESCITALOPRAM 10 MG TABLET. PO SCH (19:43)
[2016-08-22] MEDS: MIRTAZAPINE 7.5 MG TABLET. PO SCH (19:44)
--- NOTE | 2016-08-22 20:57 | PDOC ---
Exam Bj Demential Exam: Bj Note: Please also refer to the separate dictated note~for this date of service dictated separately.~Patient seen individually. Discussed the patient with Nursing staff reviewed the chart.~Reviewed interim history and current functioning. Reviewed vital signs,~Labs/ Radiology~and current medications noted below. Continue current treatment with the changes noted in the dictated addendum note Assessment: Vital Signs: Vital Signs Date Time Temp Pulse Resp B/P Pulse Ox O2 Delivery O2 Flow Rate FiO2 08/22/16 19:41 Room Air 08/22/16 16:37 59 127/56 08/22/16 15:49 97.4 18 97 I&O Intake and Output 08/22/16 07:00 Intake Total 960 ml Balance 960 ml Intake Oral 960 ml # Bowel Movements 1 Current Medications: Meds: Current Medications Magnesium Sulfate (Magnesium Sulfate PREMIX 2GM) 50 ml @ 25 mls/hr 1X ONCE IV ; Start 08/14/16 at 21:00; Stop 08/14/16 at 22:15; Status DC Furosemide (Lasix) 40 mg 1X ONCE PO Last administered on 08/14/16 20:53; Start 08/14/16 at 21:00; Stop 08/14/16 at 21:01; Status DC Acetaminophen (Tylenol) 650 mg PRN Q6HRS PRN PO PAIN / TEMP; Start 08/14/16 at 22:00 Multi-Ingredient Ointment (Analgesic [place]) 1 sidra PRN QID PRN TP MUSCLE PAIN; Start 08/14/16 at 22:00 Al Hydroxide/Mg Hydroxide (Mylanta Plus Xs) 15 ml PRN AFTMEALHC PRN PO DYSPEPSIA; Start 08/14/16 at 22:00 Magnesium Hydroxide (Milk Of Magnesia) 2,400 mg PRN QHS PRN PO CONSTIPATION; Start 08/14/16 at 22:00 Escitalopram Oxalate (Lexapro) 10 mg QHS PO Last administered on 08/22/16 19: 43; Start 08/21/16 at 21:00 Escitalopram Oxalate (Lexapro) 5 mg QHS PO Last administered on 08/20/16 19:28 ; Start 08/14/16 at 22:30; Stop 08/20/16 at 22:00; Status DC Mirtazapine (Remeron) 7.5 mg QHS PO Last administered on 08/22/16 19:44; Start 08/14/16 at 22:30 Valproic Acid (Depakene) 100 mg BID PO Last administered on 08/22/16 19:42; Start 08/14/16 at 22:30 Magnesium Oxide (Magnesium Oxide) 400 mg TID PO Last administered on 08/22/16 19:43; Start 08/14/16 at 22:30 Amlodipine Besylate (Norvasc) 5 mg DAILY PO Last administered on 08/22/16 08: 12; Start 08/15/16 at 09:00 Apixaban (Eliquis) 2.5 mg DAILY PO Last administered on 08/17/16 09:21; Start 08/15/16 at 09:00; Stop 08/17/16 at 18:45; Status DC Aspirin (Aspirin Enteric Coated) 81 mg DAILY PO Last administered on 08/22/16 08:11; Start 08/15/16 at 09:00 Bisacodyl (Dulcolax Supp) 10 mg PRN Q12HR PRN RC CONSTIPATION; Start 08/14/16 at 22:15 Carvedilol (Coreg) 12.5 mg BIDWMEALS PO Last administered on 08/22/16 16:37; Start 08/15/16 at 08:00 Clonidine HCl (Catapres) 0.1 mg PRN DAILY PRN PO HTN; Start 08/14/16 at 22:15 Ferrous Sulfate (Feosol) 325 mg DAILY PO Last administered on 08/22/16 08:12; Start 08/15/16 at 09:00 Oxycodone HCl (Roxicodone) 5 mg PRN Q4HRS PRN PO PAIN Last administered on 08/22 18:37; Start 08/14/16 at 22:15 Pantoprazole Sodium (Protonix) 40 mg DAILY PO Last administered on 08/22/16 08 :12; Start 08/15/16 at 09:00 Polyethylene Glycol (miraLAX) 17 gm DAILY PO Last administered on 08/22/16 08: 12; Start 08/15/16 at 09:00 Sennosides (Senna) 8.6 mg BID PO Last administered on 08/22/16 19:44; Start at 22:30 Thiamine HCl (Vitamin B-1) 100 mg TIDAFTMEAL PO Last administered on 08/22/16 16:36; Start 08/15/16 at 09:00 Non-Formulary Medication 7.5 mg DAILY PO Overactive Bladder; Start 08/15/16 at 09:00; Stop 08/15/16 at 09:00; Status DC Gabapentin (Neurontin) 600 mg TID PO Last administered on 08/22/16 19:44; Start 08/14/16 at 22:30 Oxybutynin Chloride (Ditropan) 5 mg BID PO Last administered on 08/22/16 19:42 ; Start 08/15/16 at 09:00 Potassium Chloride (Klor-Con) 20 meq BID PO Last administered on 08/22/16 19: 43; Start 08/15/16 at 21:00 Vitamin D (Vitamin D3) 50,000 unit WEEKLY PO ; Start 08/23/16 at 09:00 Apixaban (Eliquis) 2.5 mg BID PO Last administered on 08/22/16 19:42; Start at 21:00 Active Scripts Active Reported Oxycodone Hcl 5 Mg Tablet 5 Mg PO PRN Q4HRS PRN Clonidine Hcl 0.1 Mg Tablet 0.1 Mg PO PRN DAILY PRN Bisacodyl 10 Mg Supp.rect 10 Mg RC PRN Q12HR PRN Acetaminophen 325 Mg Tablet 650 Mg PO PRN Q4HRS PRN Thiamine Hcl 100 Mg Tablet 100 Mg PO TIDAFTMEAL Neurontin (Gabapentin) 600 Mg Tablet 600 Mg PO TID Senna (Sennosides) 8.6 Mg Tablet 8.6 Mg PO BID Eliquis (Apixaban) 2.5 Mg Tablet 2.5 Mg PO DAILY Depakene (Valproate Sodium) 250 Mg/5 Ml Solution 100 Mg PO BID Coreg (Carvedilol) 12.5 Mg Tablet 12.5 Mg PO BIDWMEALS Mirtazapine 7.5 Mg Tablet 7.5 Mg PO QHS Pantoprazole Sodium 40 Mg Tablet.dr 40 Mg PO DAILY Norvasc (Amlodipine Besylate) 5 Mg Tablet 5 Mg PO DAILY Miralax (Polyethylene Glycol 3350) 119 Gm Powder 17 Gm PO DAILY Lexapro (Escitalopram Oxalate) 5 Mg Tablet 5 Mg PO QHS 7 Days Escitalopram Oxalate 10 Mg Tablet 10 Mg PO QHS Start 08/21/16 Ferrous Sulfate 325 Mg Tablet 325 Mg PO DAILY Enablex (Darifenacin Hydrobromide) 7.5 Mg Tab.er.24h 7.5 Mg PO DAILY Aspirin Ec (Aspirin) 81 Mg Tablet.dr 81 Mg PO DAILY Diagnosis: Problems: (1) Dementia (2) Anxiety disorder (3) Impulse control disorder (4) Major depressive disorder, recurrent episode (5) Dementia in Alzheimer's disease with depression SYDNEE MENJIVAR MD Aug 22, 2016 20:57
[2016-08-23 05:57] VITALS: BP 172/79
[2016-08-23] MEDS: GABAPENTIN 300 MG CAPSULE. PO SCH ×3 (08:22→19:45)
[2016-08-23] MEDS: MAGNESIUM OXIDE 400 MG TABLET PO SCH ×3 (08:23→19:44)
[2016-08-23] MEDS: THIAMINE 100 MG TABLET. PO SCH ×3 (08:23→17:08)
[2016-08-23] MEDS: SENNOSIDES 8.6 MG TABLET PO SCH ×2 (08:23→19:45)
[2016-08-23] MEDS: CARVEDILOL 12.5 MG TABLET PO SCH ×2 (08:23→17:00)
[2016-08-23] MEDS: PANTOPRAZOLE 40 MG TABLET. PO SCH (08:23)
[2016-08-23] MEDS: AMLODIPINE BESYLATE 5 MG TABLET PO SCH (08:23)
[2016-08-23] MEDS: OXYBUTYNIN CHLORIDE 5 MG TABLET PO SCH ×2 (08:23→19:45)
[2016-08-23] MEDS: VALPROATE ACID 250 MG/5 ML ORAL SOLUTION PO SCH ×2 (08:24→19:44)
[2016-08-23] MEDS: POTASSIUM CHLORIDE 20 MEQ TABLET.ER. PO SCH ×2 (08:24→19:44)
[2016-08-23] MEDS: ASPIRIN ENTERIC COATED 81 MG TABLET.DR. PO SCH (08:24)
[2016-08-23] MEDS: APIXABAN 2.5 MG TABLET PO SCH ×2 (08:24→19:45)
[2016-08-23] MEDS: FERROUS SULFATE 325 MG TABLET PO SCH (08:24)
[2016-08-23] MEDS: POLYETHYLENE GLYCOL 3350 17 GM PACKET. PO SCH (08:24)
[2016-08-23] MEDS ORDERED: CHOLECALCIFEROL (VITAMIN D3) 50,000 UNIT CAPSULE PO SCH (09:00)
[2016-08-23 16:14] VITALS: BP 147/53
[2016-08-23] MEDS: MIRTAZAPINE 7.5 MG TABLET. PO SCH (19:44)
[2016-08-23] MEDS: ESCITALOPRAM 10 MG TABLET. PO SCH (19:45)
--- NOTE | 2016-08-23 21:10 | PDOC ---
Exam Bj Demential Exam: Bj Note: Please also refer to the separate dictated note~for this date of service dictated separately.~Patient seen individually. Discussed the patient with Nursing staff reviewed the chart.~Reviewed interim history and current functioning. Reviewed vital signs,~Labs/ Radiology~and current medications noted below. Continue current treatment with the changes noted in the dictated addendum note Assessment: Vital Signs: Vital Signs Date Time Temp Pulse Resp B/P Pulse Ox O2 Delivery O2 Flow Rate FiO2 08/23/16 17:00 59 147/53 08/23/16 16:14 97.4 17 98 08/22/16 19:41 Room Air I&O Intake and Output 08/23/16 07:00 Intake Total 1200 ml Balance 1200 ml Intake Oral 1200 ml Current Medications: Meds: Current Medications Magnesium Sulfate (Magnesium Sulfate PREMIX 2GM) 50 ml @ 25 mls/hr 1X ONCE IV ; Start 08/14/16 at 21:00; Stop 08/14/16 at 22:15; Status DC Furosemide (Lasix) 40 mg 1X ONCE PO Last administered on 08/14/16 20:53; Start 08/14/16 at 21:00; Stop 08/14/16 at 21:01; Status DC Acetaminophen (Tylenol) 650 mg PRN Q6HRS PRN PO PAIN / TEMP; Start 08/14/16 at 22:00 Multi-Ingredient Ointment (Analgesic [place]) 1 sidra PRN QID PRN TP MUSCLE PAIN; Start 08/14/16 at 22:00 Al Hydroxide/Mg Hydroxide (Mylanta Plus Xs) 15 ml PRN AFTMEALHC PRN PO DYSPEPSIA; Start 08/14/16 at 22:00 Magnesium Hydroxide (Milk Of Magnesia) 2,400 mg PRN QHS PRN PO CONSTIPATION; Start 08/14/16 at 22:00 Escitalopram Oxalate (Lexapro) 10 mg QHS PO Last administered on 08/23/16 19: 45; Start 08/21/16 at 21:00 Escitalopram Oxalate (Lexapro) 5 mg QHS PO Last administered on 08/20/16 19:28 ; Start 08/14/16 at 22:30; Stop 08/20/16 at 22:00; Status DC Mirtazapine (Remeron) 7.5 mg QHS PO Last administered on 08/23/16 19:44; Start 08/14/16 at 22:30 Valproic Acid (Depakene) 100 mg BID PO Last administered on 08/23/16 19:44; Start 08/14/16 at 22:30 Magnesium Oxide (Magnesium Oxide) 400 mg TID PO Last administered on 08/23/16 19:44; Start 08/14/16 at 22:30 Amlodipine Besylate (Norvasc) 5 mg DAILY PO Last administered on 08/23/16 08: 23; Start 08/15/16 at 09:00 Apixaban (Eliquis) 2.5 mg DAILY PO Last administered on 08/17/16 09:21; Start 08/15/16 at 09:00; Stop 08/17/16 at 18:45; Status DC Aspirin (Aspirin Enteric Coated) 81 mg DAILY PO Last administered on 08/23/16 08:24; Start 08/15/16 at 09:00 Bisacodyl (Dulcolax Supp) 10 mg PRN Q12HR PRN RC CONSTIPATION; Start 08/14/16 at 22:15 Carvedilol (Coreg) 12.5 mg BIDWMEALS PO Last administered on 08/23/16 08:23; Start 08/15/16 at 08:00 Clonidine HCl (Catapres) 0.1 mg PRN DAILY PRN PO HTN; Start 08/14/16 at 22:15 Ferrous Sulfate (Feosol) 325 mg DAILY PO Last administered on 08/23/16 08:24; Start 08/15/16 at 09:00 Oxycodone HCl (Roxicodone) 5 mg PRN Q4HRS PRN PO PAIN Last administered on 08/22 18:37; Start 08/14/16 at 22:15 Pantoprazole Sodium (Protonix) 40 mg DAILY PO Last administered on 08/23/16 08 :23; Start 08/15/16 at 09:00 Polyethylene Glycol (miraLAX) 17 gm DAILY PO Last administered on 08/23/16 08: 24; Start 08/15/16 at 09:00 Sennosides (Senna) 8.6 mg BID PO Last administered on 08/23/16 19:45; Start at 22:30 Thiamine HCl (Vitamin B-1) 100 mg TIDAFTMEAL PO Last administered on 08/23/16 17:08; Start 08/15/16 at 09:00 Non-Formulary Medication 7.5 mg DAILY PO Overactive Bladder; Start 08/15/16 at 09:00; Stop 08/15/16 at 09:00; Status DC Gabapentin (Neurontin) 600 mg TID PO Last administered on 08/23/16 19:45; Start 08/14/16 at 22:30 Oxybutynin Chloride (Ditropan) 5 mg BID PO Last administered on 08/23/16 19:45 ; Start 08/15/16 at 09:00 Potassium Chloride (Klor-Con) 20 meq BID PO Last administered on 08/23/16 19: 44; Start 08/15/16 at 21:00 Vitamin D (Vitamin D3) 50,000 unit WEEKLY PO Last administered on 08/23/16 08: 25; Start 08/23/16 at 09:00 Apixaban (Eliquis) 2.5 mg BID PO Last administered on 08/23/16 19:45; Start at 21:00 Active Scripts Active Reported Oxycodone Hcl 5 Mg Tablet 5 Mg PO PRN Q4HRS PRN Clonidine Hcl 0.1 Mg Tablet 0.1 Mg PO PRN DAILY PRN Bisacodyl 10 Mg Supp.rect 10 Mg RC PRN Q12HR PRN Acetaminophen 325 Mg Tablet 650 Mg PO PRN Q4HRS PRN Thiamine Hcl 100 Mg Tablet 100 Mg PO TIDAFTMEAL Neurontin (Gabapentin) 600 Mg Tablet 600 Mg PO TID Senna (Sennosides) 8.6 Mg Tablet 8.6 Mg PO BID Eliquis (Apixaban) 2.5 Mg Tablet 2.5 Mg PO DAILY Depakene (Valproate Sodium) 250 Mg/5 Ml Solution 100 Mg PO BID Coreg (Carvedilol) 12.5 Mg Tablet 12.5 Mg PO BIDWMEALS Mirtazapine 7.5 Mg Tablet 7.5 Mg PO QHS Pantoprazole Sodium 40 Mg Tablet.dr 40 Mg PO DAILY Norvasc (Amlodipine Besylate) 5 Mg Tablet 5 Mg PO DAILY Miralax (Polyethylene Glycol 3350) 119 Gm Powder 17 Gm PO DAILY Lexapro (Escitalopram Oxalate) 5 Mg Tablet 5 Mg PO QHS 7 Days Escitalopram Oxalate 10 Mg Tablet 10 Mg PO QHS Start 08/21/16 Ferrous Sulfate 325 Mg Tablet 325 Mg PO DAILY Enablex (Darifenacin Hydrobromide) 7.5 Mg Tab.er.24h 7.5 Mg PO DAILY Aspirin Ec (Aspirin) 81 Mg Tablet.dr 81 Mg PO DAILY Diagnosis: Problems: (1) Dementia (2) Anxiety disorder (3) Impulse control disorder (4) Major depressive disorder, recurrent episode (5) Dementia in Alzheimer's disease with depression SYDNEE MENJIVAR MD Aug 23, 2016 21:10
--- NOTE | 2016-08-24 01:17 | PN ---
DATE: 08/22/2016 This late entry for 08/22/2016 covers elements not covered in my initial note. SUBJECTIVE: The patient remains somewhat withdrawn, still admits to being bored with no active suicidal or homicidal ideation. Mood and affect are still depressed. REVIEW OF SYSTEMS: Ambulation impaired, in her wheelchair. No CV, , Pulmonary, eye system symptoms on review. MENTAL STATUS EXAM: Oriented to herself and situation. Speech is coherent, has some latency. Abstraction fair, computation impaired, language function intact. Mood and affect still dysphoric, but showing improvement. LABORATORY DATA: Reviewed. 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 PLAN: Maintain current psychotropics mentioned in my initial note. MAN Abelardo MENJIVAR MD DR: GUNJAN/susannah JOB#: [id number] / [id number]
--- NOTE | 2016-08-24 01:17 | PN ---
DATE: 08/21/2016 PSYCHIATRIC PROGRESS NOTE This is a late entry for 08/21/2016, covers elements not covered in my initial note. SUBJECTIVE: Per nursing report, family came to visit her and they felt this is the best they have seen her in a long time. The morning of 08/21/2016, she was crying because she said she was afraid she was losing her memory. She admits to being bored. Nursing staff showed her how to play solitaire and she seemed to have some involvement with this. She was irritable after the family left, but otherwise polite. REVIEW OF SYSTEMS: Ambulation impaired, in her wheelchair. No CV, , pulmonary, eye system symptoms on review. MENTAL STATUS EXAM: Oriented to herself and situation. Speech coherent, abstraction fair, computation impaired, language function intact. Mood and affect still depressed. No suicidal or homicidal ideation. LABORATORY DATA: Reviewed. IMPRESSION: Major depressive disorder, recurrent with psychotic features, in partial remission; cognitive disorder, unspecified. Rest diagnosis unchanged. PLAN: Continue current psychotropics mentioned in my initial note. Adjust further as clinically indicated. MAN Abelardo MENJIVAR MD DR: GUNJAN/susannah JOB#: [id number] / [id number]
[2016-08-24 06:16] VITALS: BP 150/60
[2016-08-24] MEDS: GABAPENTIN 300 MG CAPSULE. PO SCH ×3 (08:10→19:59)
[2016-08-24] MEDS: VALPROATE ACID 250 MG/5 ML ORAL SOLUTION PO SCH ×2 (08:10→19:58)
[2016-08-24] MEDS: SENNOSIDES 8.6 MG TABLET PO SCH ×2 (08:10→19:59)
[2016-08-24] MEDS: ASPIRIN ENTERIC COATED 81 MG TABLET.DR. PO SCH (08:10)
[2016-08-24] MEDS: MAGNESIUM OXIDE 400 MG TABLET PO SCH ×3 (08:10→20:01)
[2016-08-24] MEDS: APIXABAN 2.5 MG TABLET PO SCH ×2 (08:10→19:58)
[2016-08-24] MEDS: AMLODIPINE BESYLATE 5 MG TABLET PO SCH (08:10)
[2016-08-24] MEDS: OXYBUTYNIN CHLORIDE 5 MG TABLET PO SCH ×2 (08:10→19:59)
[2016-08-24] MEDS: PANTOPRAZOLE 40 MG TABLET. PO SCH (08:10)
[2016-08-24] MEDS: POTASSIUM CHLORIDE 20 MEQ TABLET.ER. PO SCH ×2 (08:11→19:59)
[2016-08-24] MEDS: POLYETHYLENE GLYCOL 3350 17 GM PACKET. PO SCH (08:11)
[2016-08-24] MEDS: CARVEDILOL 12.5 MG TABLET PO SCH ×2 (08:11→17:11)
[2016-08-24] MEDS: FERROUS SULFATE 325 MG TABLET PO SCH (08:11)
[2016-08-24] MEDS: THIAMINE 100 MG TABLET. PO SCH ×3 (08:12→17:11)
[2016-08-24 16:09] VITALS: BP 147/88
[2016-08-24] MEDS: MIRTAZAPINE 7.5 MG TABLET. PO SCH (19:58)
[2016-08-24] MEDS: ESCITALOPRAM 10 MG TABLET. PO SCH (19:59)
--- NOTE | 2016-08-24 20:57 | PDOC ---
Exam Bj Demential Exam: Bj Note: Please also refer to the separate dictated note~for this date of service dictated separately.~Patient seen individually. Discussed the patient with Nursing staff reviewed the chart.~Reviewed interim history and current functioning. Reviewed vital signs,~Labs/ Radiology~and current medications noted below. Continue current treatment with the changes noted in the dictated addendum note Assessment: Vital Signs: Vital Signs Date Time Temp Pulse Resp B/P Pulse Ox O2 Delivery O2 Flow Rate FiO2 08/24/16 17:11 59 147/88 08/24/16 16:09 97.6 20 98 08/22/16 19:41 Room Air I&O Intake and Output 08/24/16 07:00 Intake Total 840 ml Balance 840 ml Intake Oral 840 ml Current Medications: Meds: Current Medications Magnesium Sulfate (Magnesium Sulfate PREMIX 2GM) 50 ml @ 25 mls/hr 1X ONCE IV ; Start 08/14/16 at 21:00; Stop 08/14/16 at 22:15; Status DC Furosemide (Lasix) 40 mg 1X ONCE PO Last administered on 08/14/16 20:53; Start 08/14/16 at 21:00; Stop 08/14/16 at 21:01; Status DC Acetaminophen (Tylenol) 650 mg PRN Q6HRS PRN PO PAIN / TEMP; Start 08/14/16 at 22:00 Multi-Ingredient Ointment (Analgesic [place]) 1 sidra PRN QID PRN TP MUSCLE PAIN; Start 08/14/16 at 22:00 Al Hydroxide/Mg Hydroxide (Mylanta Plus Xs) 15 ml PRN AFTMEALHC PRN PO DYSPEPSIA; Start 08/14/16 at 22:00 Magnesium Hydroxide (Milk Of Magnesia) 2,400 mg PRN QHS PRN PO CONSTIPATION; Start 08/14/16 at 22:00 Escitalopram Oxalate (Lexapro) 10 mg QHS PO Last administered on 08/24/16 19: 59; Start 08/21/16 at 21:00 Escitalopram Oxalate (Lexapro) 5 mg QHS PO Last administered on 08/20/16 19:28 ; Start 08/14/16 at 22:30; Stop 08/20/16 at 22:00; Status DC Mirtazapine (Remeron) 7.5 mg QHS PO Last administered on 08/24/16 19:58; Start 08/14/16 at 22:30 Valproic Acid (Depakene) 100 mg BID PO Last administered on 08/24/16 19:58; Start 08/14/16 at 22:30 Magnesium Oxide (Magnesium Oxide) 400 mg TID PO Last administered on 08/24/16 20:01; Start 08/14/16 at 22:30 Amlodipine Besylate (Norvasc) 5 mg DAILY PO Last administered on 08/24/16 08: 10; Start 08/15/16 at 09:00 Apixaban (Eliquis) 2.5 mg DAILY PO Last administered on 08/17/16 09:21; Start 08/15/16 at 09:00; Stop 08/17/16 at 18:45; Status DC Aspirin (Aspirin Enteric Coated) 81 mg DAILY PO Last administered on 08/24/16 08:10; Start 08/15/16 at 09:00 Bisacodyl (Dulcolax Supp) 10 mg PRN Q12HR PRN RC CONSTIPATION; Start 08/14/16 at 22:15 Carvedilol (Coreg) 12.5 mg BIDWMEALS PO Last administered on 08/24/16 17:11; Start 08/15/16 at 08:00 Clonidine HCl (Catapres) 0.1 mg PRN DAILY PRN PO HTN; Start 08/14/16 at 22:15 Ferrous Sulfate (Feosol) 325 mg DAILY PO Last administered on 08/24/16 08:11; Start 08/15/16 at 09:00 Oxycodone HCl (Roxicodone) 5 mg PRN Q4HRS PRN PO PAIN Last administered on 08/22 18:37; Start 08/14/16 at 22:15 Pantoprazole Sodium (Protonix) 40 mg DAILY PO Last administered on 08/24/16 08 :10; Start 08/15/16 at 09:00 Polyethylene Glycol (miraLAX) 17 gm DAILY PO Last administered on 08/24/16 08: 11; Start 08/15/16 at 09:00 Sennosides (Senna) 8.6 mg BID PO Last administered on 08/24/16 19:59; Start at 22:30 Thiamine HCl (Vitamin B-1) 100 mg TIDAFTMEAL PO Last administered on 08/24/16 17:11; Start 08/15/16 at 09:00 Non-Formulary Medication 7.5 mg DAILY PO Overactive Bladder; Start 08/15/16 at 09:00; Stop 08/15/16 at 09:00; Status DC Gabapentin (Neurontin) 600 mg TID PO Last administered on 08/24/16 19:59; Start 08/14/16 at 22:30 Oxybutynin Chloride (Ditropan) 5 mg BID PO Last administered on 08/24/16 19:59 ; Start 08/15/16 at 09:00 Potassium Chloride (Klor-Con) 20 meq BID PO Last administered on 08/24/16 19: 59; Start 08/15/16 at 21:00 Vitamin D (Vitamin D3) 50,000 unit WEEKLY PO Last administered on 08/23/16 08: 25; Start 08/23/16 at 09:00 Apixaban (Eliquis) 2.5 mg BID PO Last administered on 08/24/16 19:58; Start at 21:00 Active Scripts Active Reported Oxycodone Hcl 5 Mg Tablet 5 Mg PO PRN Q4HRS PRN Clonidine Hcl 0.1 Mg Tablet 0.1 Mg PO PRN DAILY PRN Bisacodyl 10 Mg Supp.rect 10 Mg RC PRN Q12HR PRN Acetaminophen 325 Mg Tablet 650 Mg PO PRN Q4HRS PRN Thiamine Hcl 100 Mg Tablet 100 Mg PO TIDAFTMEAL Neurontin (Gabapentin) 600 Mg Tablet 600 Mg PO TID Senna (Sennosides) 8.6 Mg Tablet 8.6 Mg PO BID Eliquis (Apixaban) 2.5 Mg Tablet 2.5 Mg PO DAILY Depakene (Valproate Sodium) 250 Mg/5 Ml Solution 100 Mg PO BID Coreg (Carvedilol) 12.5 Mg Tablet 12.5 Mg PO BIDWMEALS Mirtazapine 7.5 Mg Tablet 7.5 Mg PO QHS Pantoprazole Sodium 40 Mg Tablet.dr 40 Mg PO DAILY Norvasc (Amlodipine Besylate) 5 Mg Tablet 5 Mg PO DAILY Miralax (Polyethylene Glycol 3350) 119 Gm Powder 17 Gm PO DAILY Lexapro (Escitalopram Oxalate) 5 Mg Tablet 5 Mg PO QHS 7 Days Escitalopram Oxalate 10 Mg Tablet 10 Mg PO QHS Start 08/21/16 Ferrous Sulfate 325 Mg Tablet 325 Mg PO DAILY Enablex (Darifenacin Hydrobromide) 7.5 Mg Tab.er.24h 7.5 Mg PO DAILY Aspirin Ec (Aspirin) 81 Mg Tablet. 81 Mg PO DAILY Diagnosis: Problems: (1) Dementia (2) Anxiety disorder (3) Impulse control disorder (4) Major depressive disorder, recurrent episode (5) Dementia in Alzheimer's disease with depression SYDNEE MENJIVAR MD Aug 24, 2016 20:57
[2016-08-25 06:28] VITALS: BP 152/55
[2016-08-25] MEDS: PANTOPRAZOLE 40 MG TABLET. PO SCH (08:12)
[2016-08-25] MEDS: GABAPENTIN 300 MG CAPSULE. PO SCH ×3 (08:12→19:45)
[2016-08-25] MEDS: APIXABAN 2.5 MG TABLET PO SCH ×2 (08:12→19:45)
[2016-08-25] MEDS: ASPIRIN ENTERIC COATED 81 MG TABLET.DR. PO SCH (08:13)
[2016-08-25] MEDS: OXYBUTYNIN CHLORIDE 5 MG TABLET PO SCH ×2 (08:13→19:46)
[2016-08-25] MEDS: SENNOSIDES 8.6 MG TABLET PO SCH ×2 (08:13→19:46)
[2016-08-25] MEDS: MAGNESIUM OXIDE 400 MG TABLET PO SCH ×3 (08:13→19:46)
[2016-08-25] MEDS: POTASSIUM CHLORIDE 20 MEQ TABLET.ER. PO SCH ×2 (08:13→19:45)
[2016-08-25] MEDS: CARVEDILOL 12.5 MG TABLET PO SCH ×2 (08:13→16:22)
[2016-08-25] MEDS: FERROUS SULFATE 325 MG TABLET PO SCH (08:13)
[2016-08-25] MEDS: AMLODIPINE BESYLATE 5 MG TABLET PO SCH (08:13)
[2016-08-25] MEDS: THIAMINE 100 MG TABLET. PO SCH ×3 (08:14→16:22)
[2016-08-25] MEDS: POLYETHYLENE GLYCOL 3350 17 GM PACKET. PO SCH (08:14)
[2016-08-25] MEDS: VALPROATE ACID 250 MG/5 ML ORAL SOLUTION PO SCH ×2 (08:14→19:45)
[2016-08-25] MEDS: OXYCODONE IR 5 MG TABLET. PO PRN (13:42)
[2016-08-25 16:01] VITALS: BP 116/56
[2016-08-25] MEDS: MIRTAZAPINE 7.5 MG TABLET. PO SCH (19:45)
[2016-08-25] MEDS: ESCITALOPRAM 10 MG TABLET. PO SCH (19:45)
--- NOTE | 2016-08-25 20:55 | PDOC ---
Exam Bj Demential Exam: Bj Note: Please also refer to the separate dictated note~for this date of service dictated separately.~Patient seen individually. Discussed the patient with Nursing staff reviewed the chart.~Reviewed interim history and current functioning. Reviewed vital signs,~Labs/ Radiology~and current medications noted below. Continue current treatment with the changes noted in the dictated addendum note Assessment: Vital Signs: Vital Signs Date Time Temp Pulse Resp B/P Pulse Ox O2 Delivery O2 Flow Rate FiO2 08/25/16 16:22 65 116/56 08/25/16 16:01 97.6 18 97 08/22/16 19:41 Room Air I&O Intake and Output 08/25/16 07:00 Intake Total 1250 ml Balance 1250 ml Intake Oral 1250 ml # Voids 2 # Bowel Movements 1 Current Medications: Meds: Current Medications Magnesium Sulfate (Magnesium Sulfate PREMIX 2GM) 50 ml @ 25 mls/hr 1X ONCE IV ; Start 08/14/16 at 21:00; Stop 08/14/16 at 22:15; Status DC Furosemide (Lasix) 40 mg 1X ONCE PO Last administered on 08/14/16 20:53; Start 08/14/16 at 21:00; Stop 08/14/16 at 21:01; Status DC Acetaminophen (Tylenol) 650 mg PRN Q6HRS PRN PO PAIN / TEMP; Start 08/14/16 at 22:00 Multi-Ingredient Ointment (Analgesic [place]) 1 sidra PRN QID PRN TP MUSCLE PAIN; Start 08/14/16 at 22:00 Al Hydroxide/Mg Hydroxide (Mylanta Plus Xs) 15 ml PRN AFTMEALHC PRN PO DYSPEPSIA; Start 08/14/16 at 22:00 Magnesium Hydroxide (Milk Of Magnesia) 2,400 mg PRN QHS PRN PO CONSTIPATION; Start 08/14/16 at 22:00 Escitalopram Oxalate (Lexapro) 10 mg QHS PO Last administered on 08/25/16 19: 45; Start 08/21/16 at 21:00 Escitalopram Oxalate (Lexapro) 5 mg QHS PO Last administered on 08/20/16 19:28 ; Start 08/14/16 at 22:30; Stop 08/20/16 at 22:00; Status DC Mirtazapine (Remeron) 7.5 mg QHS PO Last administered on 08/25/16 19:45; Start 08/14/16 at 22:30 Valproic Acid (Depakene) 100 mg BID PO Last administered on 08/25/16 19:45; Start 08/14/16 at 22:30 Magnesium Oxide (Magnesium Oxide) 400 mg TID PO Last administered on 08/25/16 19:46; Start 08/14/16 at 22:30 Amlodipine Besylate (Norvasc) 5 mg DAILY PO Last administered on 08/25/16 08: 13; Start 08/15/16 at 09:00 Apixaban (Eliquis) 2.5 mg DAILY PO Last administered on 08/17/16 09:21; Start 08/15/16 at 09:00; Stop 08/17/16 at 18:45; Status DC Aspirin (Aspirin Enteric Coated) 81 mg DAILY PO Last administered on 08/25/16 08:13; Start 08/15/16 at 09:00 Bisacodyl (Dulcolax Supp) 10 mg PRN Q12HR PRN RC CONSTIPATION; Start 08/14/16 at 22:15 Carvedilol (Coreg) 12.5 mg BIDWMEALS PO Last administered on 08/25/16 16:22; Start 08/15/16 at 08:00 Clonidine HCl (Catapres) 0.1 mg PRN DAILY PRN PO HTN; Start 08/14/16 at 22:15 Ferrous Sulfate (Feosol) 325 mg DAILY PO Last administered on 08/25/16 08:13; Start 08/15/16 at 09:00 Oxycodone HCl (Roxicodone) 5 mg PRN Q4HRS PRN PO PAIN Last administered on 08/25 13:42; Start 08/14/16 at 22:15 Pantoprazole Sodium (Protonix) 40 mg DAILY PO Last administered on 08/25/16 08 :12; Start 08/15/16 at 09:00 Polyethylene Glycol (miraLAX) 17 gm DAILY PO Last administered on 08/25/16 08: 14; Start 08/15/16 at 09:00 Sennosides (Senna) 8.6 mg BID PO Last administered on 08/25/16 19:46; Start at 22:30 Thiamine HCl (Vitamin B-1) 100 mg TIDAFTMEAL PO Last administered on 08/25/16 16:22; Start 08/15/16 at 09:00 Non-Formulary Medication 7.5 mg DAILY PO Overactive Bladder; Start 08/15/16 at 09:00; Stop 08/15/16 at 09:00; Status DC Gabapentin (Neurontin) 600 mg TID PO Last administered on 08/25/16 19:45; Start 08/14/16 at 22:30 Oxybutynin Chloride (Ditropan) 5 mg BID PO Last administered on 08/25/16 19:46 ; Start 08/15/16 at 09:00 Potassium Chloride (Klor-Con) 20 meq BID PO Last administered on 08/25/16 19: 45; Start 08/15/16 at 21:00 Vitamin D (Vitamin D3) 50,000 unit WEEKLY PO Last administered on 08/23/16 08: 25; Start 08/23/16 at 09:00 Apixaban (Eliquis) 2.5 mg BID PO Last administered on 08/25/16 19:45; Start at 21:00 Active Scripts Active Reported Oxycodone Hcl 5 Mg Tablet 5 Mg PO PRN Q4HRS PRN Clonidine Hcl 0.1 Mg Tablet 0.1 Mg PO PRN DAILY PRN Bisacodyl 10 Mg Supp.rect 10 Mg RC PRN Q12HR PRN Acetaminophen 325 Mg Tablet 650 Mg PO PRN Q4HRS PRN Thiamine Hcl 100 Mg Tablet 100 Mg PO TIDAFTMEAL Neurontin (Gabapentin) 600 Mg Tablet 600 Mg PO TID Senna (Sennosides) 8.6 Mg Tablet 8.6 Mg PO BID Eliquis (Apixaban) 2.5 Mg Tablet 2.5 Mg PO DAILY Depakene (Valproate Sodium) 250 Mg/5 Ml Solution 100 Mg PO BID Coreg (Carvedilol) 12.5 Mg Tablet 12.5 Mg PO BIDWMEALS Mirtazapine 7.5 Mg Tablet 7.5 Mg PO QHS Pantoprazole Sodium 40 Mg Tablet.dr 40 Mg PO DAILY Norvasc (Amlodipine Besylate) 5 Mg Tablet 5 Mg PO DAILY Miralax (Polyethylene Glycol 3350) 119 Gm Powder 17 Gm PO DAILY Lexapro (Escitalopram Oxalate) 5 Mg Tablet 5 Mg PO QHS 7 Days Escitalopram Oxalate 10 Mg Tablet 10 Mg PO QHS Start 08/21/16 Ferrous Sulfate 325 Mg Tablet 325 Mg PO DAILY Enablex (Darifenacin Hydrobromide) 7.5 Mg Tab.er.24h 7.5 Mg PO DAILY Aspirin Ec (Aspirin) 81 Mg Tablet. 81 Mg PO DAILY Diagnosis: Problems: (1) Dementia (2) Anxiety disorder (3) Impulse control disorder (4) Major depressive disorder, recurrent episode (5) Dementia in Alzheimer's disease with depression SYDNEE MENJIVAR MD Aug 25, 2016 20:55
--- NOTE | 2016-08-25 23:47 | PN ---
DATE: 08/23/2016 This is a late entry for 08/23/2016, covers elements not covered in my initial note. SUBJECTIVE: Per nursing report, the patient remains somewhat withdrawn, depressed, but less so than before. She is less irritable even with the noise on the unit, calmer, cooperative. REVIEW OF SYSTEMS: Ambulation impaired, in her wheelchair. No CV, , pulmonary, eye system symptoms on review. MENTAL STATUS EXAM: Oriented to herself and situation. Speech has some latency, coherent. Abstraction fair, computation impaired, language function intact, attention span short. Mood and affect still depressed, withdrawn, but improved. No suicidal or homicidal ideation. LABORATORY DATA: Reviewed. IMPRESSION: Major depressive disorder, recurrent, in partial remission; cognitive disorder, unspecified. Rest diagnoses unchanged. PLAN: Continue Depakene 100 mg b.i.d., Lexapro 10 mg a day, Remeron 7.5 mg at bedtime. Adjust further as clinically indicated. SYDNEE MENJIVAR MD DR: GUNJAN/susannah JOB#: [id number] / [id number]
--- NOTE | 2016-08-25 23:56 | PN ---
DATE: 08/24/2016 PSYCHIATRIC PROGRESS NOTE This is a late entry for 08/24/2016, covers elements not covered in my initial note. SUBJECTIVE: The patient was also staffed at a treatment team meeting with the entire team. Reviewed the patient's history and her 's desire to have the patient at home with home health services. Appetite about 85%, sleeping about 7 hours. Valproic acid level 14. REVIEW OF SYSTEMS: Ambulation impaired, in her wheelchair. No CV, , pulmonary, eye, ENT system symptoms on review. MENTAL STATUS EXAM: The patient is oriented to herself and situation. Speech has some latency, coherent. Abstraction fair, computation impaired, language function intact. Mood and affect still somewhat depressed, but showing improvement. No suicidal or homicidal ideation. LABORATORY DATA: Reviewed. IMPRESSION: Major depressive disorder, recurrent, in partial remission; cognitive disorder, unspecified. Rest diagnosis unchanged. PLAN: Maintain Depakene, Lexapro, Remeron at current dosage. Transition home to outpatient treatment the end of this week. SYDNEE MENJIVAR MD DR: GUNJAN/susannah JOB#: [id number] / [id number]
[2016-08-26] MEDS ORDERED: CHOL500016 PO (00:44)
[2016-08-26] MEDS ORDERED: MAG30ORA2 PO (00:46)
[2016-08-26] MEDS ORDERED: MAGN400O4 PO (00:46)
[2016-08-26] MEDS ORDERED: MAGN400T3 PO (00:47)
[2016-08-26] MEDS ORDERED: METH29OI TP (00:48)
[2016-08-26] MEDS ORDERED: POTA20TA82 PO (00:50)
[2016-08-26 06:12] VITALS: BP 137/81
[2016-08-26] MEDS: ASPIRIN ENTERIC COATED 81 MG TABLET.DR. PO SCH (08:04)
[2016-08-26] MEDS: OXYBUTYNIN CHLORIDE 5 MG TABLET PO SCH (08:04)
[2016-08-26] MEDS: VALPROATE ACID 250 MG/5 ML ORAL SOLUTION PO SCH (08:04)
[2016-08-26] MEDS: GABAPENTIN 300 MG CAPSULE. PO SCH ×2 (08:05→12:35)
[2016-08-26] MEDS: APIXABAN 2.5 MG TABLET PO SCH (08:05)
[2016-08-26] MEDS: POTASSIUM CHLORIDE 20 MEQ TABLET.ER. PO SCH (08:05)
[2016-08-26] MEDS: POLYETHYLENE GLYCOL 3350 17 GM PACKET. PO SCH (08:05)
[2016-08-26] MEDS: FERROUS SULFATE 325 MG TABLET PO SCH (08:05)
[2016-08-26] MEDS: MAGNESIUM OXIDE 400 MG TABLET PO SCH ×2 (08:05→12:35)
[2016-08-26 08:07] VITALS: BP 137/81
[2016-08-26] MEDS: THIAMINE 100 MG TABLET. PO SCH ×2 (08:07→12:35)
[2016-08-26] MEDS: PANTOPRAZOLE 40 MG TABLET. PO SCH (08:07)
[2016-08-26] MEDS: SENNOSIDES 8.6 MG TABLET PO SCH (08:07)
[2016-08-26] MEDS: AMLODIPINE BESYLATE 5 MG TABLET PO SCH (08:07)
[2016-08-26] MEDS: CARVEDILOL 12.5 MG TABLET PO SCH (08:07)
--- NOTE | 2016-08-26 21:54 | DS ---
DATE OF DISCHARGE: 08/26/2016 DISCHARGE SUMMARY/PSYCHIATRIC PROGRESS NOTE REASON FOR ADMISSION: Please refer to the admission history for details, questionable homicidal ideation, nonspecific. SIGNIFICANT FINDINGS AND CLINICAL COURSE: Following admission, the patient was seen daily individually by myself from a psychiatric standpoint, and is ____ Dr. Mccray/Dr. Alvarado. MAN Abelardo MENJIVAR MD DR: GUNJAN/susannah JOB#: [id number] / [id number]
--- NOTE | 2016-08-26 22:01 | DS ---
DATE OF DISCHARGE: 08/26/2016 DISCHARGE SUMMARY/PSYCHIATRIC PROGRESS NOTE REASON FOR ADMISSION: Please refer to the admission history for details. Briefly, the patient is an 81-year-old female referred to us from [facility] by her primary care physician, Dr. Wang on account of being combative, yelling, resistive to medications, being paranoid, verbally abusive, unmanageable behaviors that were deemed potentially dangerous, having failed outpatient psychiatric interventions, referred for inpatient stabilization. SIGNIFICANT FINDINGS AND CLINICAL COURSE: Following admission, the patient was seen daily individually by myself, followed medically per Dr. Mccray/Dr. Alvarado. The patient was noted to be depressed, with short term memory deficits and depression seemed to be worsened by her recognition of her memory problems. She was increasingly agitated, aggressive, paranoid with some sleep and appetite changes. Adjustments were made in her psychotropics and she seemed to respond to a combination of Depakene 100 mg b.i.d., Lexapro 10 mg a day, Remeron 7.5 at bedtime. Prior to discharge on 08/26/2016, temperature 97.2, BP 152/55, pulse 55, respirations 18. REVIEW OF SYSTEMS: Ambulation impaired, in a wheelchair. No CV, , pulmonary, eye, ENT system symptoms on review. MENTAL STATUS EXAM: The patient is oriented to herself and situation. Speech moderate latency, ____ responses monosyllabic. Abstraction fair, computation impaired, language function intact. No suicidal or homicidal ideation. Mood and affect was improved. Plan was to transition her back to [facility] but family wanted her home to outpatient followup. No suicidal or homicidal ideation prior to discharge. REVIEW OF SYSTEMS: Ambulation impaired, in a wheelchair. No CV, , pulmonary, eye system symptoms on review. MENTAL STATUS EXAM: Oriented to herself and situation. Speech coherent, has some latency, abstraction fair, computation impaired, language function intact. Mood and affect dysphoric, but improved. LABORATORY DATA: Reviewed. FINAL DIAGNOSES: Major depressive disorder, recurrent, severe, in partial remission; cognitive disorder, unspecified versus major neurocognitive disorder, Alzheimer, vascular with depression, anxiety disorder, unspecified; impulse control disorder, unspecified. Rest diagnosis unchanged from admission. DISCHARGE MEDICATIONS: Please refer to the MRAD. DISCHARGE INSTRUCTIONS: Outpatient psychiatric and medical followup with her primary care physician. Time for discharge day management greater than 30 minutes. SYDNEE MENJIVAR MD DR: GUNJAN/susannah JOB#: [id number] / [id number]
--- NOTE | 2016-08-26 22:12 | PN ---
DATE: 08/25/2016 This is a late entry for 08/25/2016, covers the elements not covered in my initial note. SUBJECTIVE: Overall, the patient has been fairly cooperative on the unit, more interactive, states her mood is better, less depressed. No suicidal or homicidal ideation. She is not yelling or sarcastic and does get frustrated about her memory deficits. REVIEW OF SYSTEMS: Ambulation impaired, in a wheelchair. No CV, , pulmonary, eye, ENT system symptoms on review. MENTAL STATUS EXAM: Oriented to herself and situation. Speech coherent, has some latency. Abstraction fair, computation impaired, language function intact. Mood and affect showing improvement. LABORATORY DATA: Reviewed. IMPRESSION: Unchanged. PLAN: Continue psychotropics as mentioned in my initial note. Possible transition home to outpatient treatment starting 08/26/2016. MAN Abelardo MENJIVAR MD DR: GUNJAN/susannah JOB#: [id number] / [id number]
== END 2016-08-26 13:33 | disposition home health service (06) | DRG 884 ==
LOC: ER 18:46 → GEROPSY 21:25
PROVIDERS: ADMIT Psychiatry & Neurology Psychiatry; ATTEND Psychiatry & Neurology Psychiatry
DX: F01.51 Vascular dementia, unspecified severity, with behavioral disturbance (principal); F02.81 Dementia in other diseases classified elsewhere, unspecified severity, with behavioral disturbance; E87.1 Hypo-osmolality and hyponatremia; G81.94 Hemiplegia, unspecified affecting left nondominant side; F33.3 Major depressive disorder, recurrent, severe with psychotic symptoms; E44.0 Moderate protein-calorie malnutrition; Z68.1 Body mass index [BMI] 19.9 or less, adult; G30.0 Alzheimer's disease with early onset; F41.9 Anxiety disorder, unspecified; F63.9 Impulse disorder, unspecified; G30.9 Alzheimer's disease, unspecified; I10 Essential (primary) hypertension; I48.2 Chronic atrial fibrillation; M19.90 Unspecified osteoarthritis, unspecified site; M81.0 Age-related osteoporosis without current pathological fracture; E83.42 Hypomagnesemia; E87.6 Hypokalemia; M54.5 Low back pain; G89.29 Other chronic pain; F33.41 Major depressive disorder, recurrent, in partial remission; Z66 Do not resuscitate; Z79.899 Other long term (current) drug therapy; Z86.73 Personal history of transient ischemic attack (TIA), and cerebral infarction without residual deficits; Z87.81 Personal history of (healed) traumatic fracture; Z87.440 Personal history of urinary (tract) infections; Z87.891 Personal history of nicotine dependence
CPT/HCPCS: 36415; 70450; 71010; 80048; 80053; 80061; 80076; 80164; 81001; 82306; 82553; 82607; 82947; 83036; 83540; 83550; 83690; 83735; 83880; 84436; 84443; 84480; 84484; 85027; 85610; 85651; 85730; 86140; 86592; 86593; 87086; 93005; 99406; G0481; 97110; 97116; 97530; 97535; 99285-25